=== PATIENT | female | born 1965 | race Asian ===

== ENCOUNTER 2021-08-23 06:03 | Emergency (ER) | payer MEDICAID ==
[~2021-08-23] VITALS: Ht 154.9 cm; Wt 45.5 kg
[2021-08-23 06:57] LABS: BASOPHILS % (AUTO) 0.3 % (0.0-2.0); EOSINOPHILS % (AUTO) 1.2 % (1.0-6.0); HEMATOCRIT 26.7 % (36-46); HEMOGLOBIN 8.6 g/dL (12.0-16.0); LYMPHOCYTES % (AUTO) 9.7 % (22.0-44.0); MEAN CORPUSCULAR HGB CONC 32.2 G/dL (31.0-37.0); MEAN CORPUSCULAR VOLUME 68 fL (80-100); MONOCYTES % (AUTO) 9.5 % (2.0-9.0); NEUTROPHILS # (AUTO) 8.4 K/uL (1.8-7.7); NEUTROPHILS % (AUTO) 79.3 % (40.0-70.0); PLATELET COUNT (AUTO) 164 K/uL (150-450); RED CELL DISTRIBUTION WIDTH 14.5 % (11.5-14.5)
[2021-08-23 07:11] LABS: CALCIUM, TOTAL 9.3 mg/dL (8.8-10.5); CREATININE 4.7 mg/dL (0.60-1.30); POTASSIUM 3.2 mmol/L (3.5-5.1)
[2021-08-23] MEDS ORDERED: ONDANSETRON HCL 4 MG/2 ML VIAL IVP ONE (07:15)
[2021-08-23] MEDS ORDERED: SODIUM CHLORIDE 0.9% 1,000 ML IV ONE ×2 (07:15→08:15)
[2021-08-23 07:24] LABS: ALBUMIN 3.7 g/dL (3.4-5.0); BILIRUBIN,TOTAL 0.4 mg/dL (0.1-1.0); MAGNESIUM 2.1 mg/dL (1.80-2.40); TOTAL PROTEIN, SERUM 7.4 g/dL (6.4-8.2)
[2021-08-23] MEDS ORDERED: POTASSIUM CHLORIDE 20 MEQ ER TABLET PO ONE (07:30)
[2021-08-23 09:26] LABS: APPEARANCE,URINE CLEAR (CLEAR); BILIRUBIN,URINE NEGATIVE (NEGATIVE); GLUCOSE, URINE (UA) NEGATIVE (NEGATIVE); KETONES,URINE NEGATIVE (NEGATIVE); LEUKOCYTE ESTERASE ,URINE NEGATIVE (NEGATIVE); NITRATE,URINE NEGATIVE (NEGATIVE); OCCULT BLOOD,URINE TRACE (NEGATIVE); PH,URINE 6.5 (5.0-8.0); PROTEIN,URINE SEE CONFIRM (NEGATIVE); UROBILINOGEN,URINE 0.2 mg/dL (<=1.0)
[2021-08-23 09:29] LABS: BACTERIA,URINE None Seen /HPF (None Seen); RBC,URINE 0-2 /HPF (0-2); SULFOSALICYLIC ACID,URINE Trace (Negative); WBC,URINE None Seen /HPF (0-5)
[2021-08-23 10:05] VITALS: BP 158/90
== END 2021-08-23 10:03 | disposition home or self-care (01) ==
LOC: EMS 06:06
DX: E87.6 Hypokalemia (principal); R11.2 Nausea with vomiting, unspecified; N18.9 Chronic kidney disease, unspecified; I10 Essential (primary) hypertension; F15.90 Other stimulant use, unspecified, uncomplicated; F17.210 Nicotine dependence, cigarettes, uncomplicated
CPT/HCPCS: 36415; 80053; 81001; 82550; 83690; 83735; 84702; 85025; 96361; 96374; 99283; J2405; J7030; 81002

== ENCOUNTER 2021-08-31 00:04 | Emergency (ER) | payer MEDICAID ==
[~2021-08-31] VITALS: Ht 154.9 cm; Wt 45.5 kg
[2021-08-31 00:57] LABS: BASOPHILS % (AUTO) 1.1 % (0.0-2.0); EOSINOPHILS % (AUTO) 1.5 % (1.0-6.0); HEMATOCRIT 24.9 % (36-46); HEMOGLOBIN 8.1 g/dL (12.0-16.0); LYMPHOCYTES # (AUTO) 2.2 K/uL (1.0-4.8); LYMPHOCYTES % (AUTO) 25.8 % (22.0-44.0); MEAN CORPUSCULAR HEMOGLOBIN 21.9 pg (26.0-34.0); MEAN CORPUSCULAR HGB CONC 32.4 G/dL (31.0-37.0); MEAN CORPUSCULAR VOLUME 68 fL (80-100); MONOCYTES # (AUTO) 0.6 K/uL (0.1-1.0); MONOCYTES % (AUTO) 6.7 % (2.0-9.0); NEUTROPHILS # (AUTO) 5.6 K/uL (1.8-7.7); NEUTROPHILS % (AUTO) 64.9 % (40.0-70.0); PLATELET COUNT (AUTO) 429 K/uL (150-450); RED BLOOD CELL COUNT(AUTO) 3.68 MIL/uL (4.00-5.20); RED CELL DISTRIBUTION WIDTH 14.4 % (11.5-14.5)
[2021-08-31] MEDS ORDERED: ONDANSETRON HCL 4 MG/2 ML VIAL IVP ONE (01:00)
[2021-08-31] MEDS ORDERED: PB/HYOSCY/ATR/SCOP/LIDO/MAALOX 55 ML BOTTLE PO ONE (01:00)
[2021-08-31 01:05] LABS: ANION GAP 12 mmol/L (8-16); CALCIUM, TOTAL 8.4 mg/dL (8.8-10.5); CARBON DIOXIDE 23 mmol/L (22-29); CHLORIDE 101 mmol/L (98-107); CREATININE 6.42 mg/dL (0.60-1.30); GLOMERULAR FILTR. RATE CALC 7 mL/min (>60); GLUCOSE,RANDOM 127 mg/dL (70-110); POTASSIUM 3.3 mmol/L (3.5-5.1); SODIUM SERUM 136 mmol/L (136-145)
[2021-08-31 01:11] LABS: ALANINE AMINOTRANSFERASE 160 U/L (12-78); ALBUMIN 3.2 g/dL (3.4-5.0); ALKALINE PHOSPHATASE 388 U/L (46-116); ASPARTATE AMINOTRANSFERASE 89 U/L (15-37); BILIRUBIN,TOTAL 0.3 mg/dL (0.1-1.0); LIPASE 149 U/L (73-393); TOTAL PROTEIN, SERUM 7.1 g/dL (6.4-8.2)
[2021-08-31 01:12] LABS: UREA NITROGEN, BLOOD 103 mg/dL (7-18)
[2021-08-31] MEDS ORDERED: SODIUM CHLORIDE 0.9% 500 ML IV ONE (01:15)
[2021-08-31 03:00] VITALS: BP 139/98
== END 2021-08-31 03:30 | disposition home or self-care (01) ==
LOC: EMS 00:06
DX: R10.32 Left lower quadrant pain (principal); F15.10 Other stimulant abuse, uncomplicated; I12.9 Hypertensive chronic kidney disease with stage 1 through stage 4 chronic kidney disease, or unspecified chronic kidney disease; N18.9 Chronic kidney disease, unspecified
CPT/HCPCS: 36415; 80053; 83690; 85025; 96361; 96374; 99283; G0480; J2405; J7030

== ENCOUNTER 2021-11-05 05:30 | Inpatient (IN) | payer MEDICAID ==
[~2021-11-05] VITALS: Ht 149.9 cm; Wt 44.4 kg
[2021-11-05] MEDS ORDERED: LORazepam 2 MG/ML VIAL IVP ONE (05:45)
[2021-11-05] MEDS ORDERED: NITROGLYCERIN 50 MG/D5% WATER 250 ML IV PRN (05:45)
[2021-11-05 05:47] LABS: BASOPHILS % (AUTO) 0.7 % (0.0-2.0); EOSINOPHILS % (AUTO) 1.7 % (1.0-6.0); HEMATOCRIT 26.1 % (36-46); HEMOGLOBIN 8.2 g/dL (12.0-16.0); LYMPHOCYTES # (AUTO) 3.6 K/uL (1.0-4.8); LYMPHOCYTES % (AUTO) 34.9 % (22.0-44.0); MEAN CORPUSCULAR HEMOGLOBIN 22.3 pg (26.0-34.0); MEAN CORPUSCULAR HGB CONC 31.2 G/dL (31.0-37.0); MEAN CORPUSCULAR VOLUME 72 fL (80-100); MONOCYTES # (AUTO) 0.6 K/uL (0.1-1.0); MONOCYTES % (AUTO) 5.6 % (2.0-9.0); NEUTROPHILS % (AUTO) 57.1 % (40.0-70.0); PLATELET COUNT (AUTO) 390 K/uL (150-450); RED BLOOD CELL COUNT(AUTO) 3.65 MIL/uL (4.00-5.20); RED CELL DISTRIBUTION WIDTH 19.8 % (11.5-14.5)
[2021-11-05 05:53] LABS: ABG BASE EXCESS -9.9 mmol/L (-2.0-3.0); ABG CARBOXYHEMOGLOBIN 1.5 % (0.0-1.5); ABG HCO3 17.1 mmol/L (22.0-26.0); ABG METHEMOGLOBIN 0.3 % (0.0-1.5); ABG OXYGEN CONTENT 11.4 mL/dL (15.0-23.0); ABG OXYGEN SATURATION 98.1 % (95.0-98.0); ABG OXYHEMOGLOBIN 96.3 % (94.0-100.0); ABG PCO2 33 mmHg (35-45); ABG PH 7.316 (7.35-7.450); ABG TOTAL HEMOGLOBIN 8.2 G/dL (12.0-18.0); PO2, ARTERIAL BG 128.3 mmHg (84.0-92.0); SITE, BLOOD GAS LFT RADIAL; SOURCE, BLOOD GAS ARTERIAL; TEMPERATURE, FAHRENHEIT, BG 98.6 FAHREN (96.0-98.6)
[2021-11-05 05:54] LABS: INSPIRATORY TIME, BG 0.8 SEC; O2 DEVICE,BLOOD GAS BIPAP (ROOM AIR); SPONTANEOUS VT, BG 470 ml
[2021-11-05 06:04] LABS: CALCIUM, TOTAL 8.1 mg/dL (8.8-10.5); CREATININE 6.39 mg/dL (0.60-1.30); POTASSIUM 3.3 mmol/L (3.5-5.1); PROTHROMBIN TIME 10.3 SEC (9.4-11.6)
[2021-11-05 06:10] LABS: ALBUMIN 3.2 g/dL (3.4-5.0); BILIRUBIN,TOTAL 0.4 mg/dL (0.1-1.0); TOTAL PROTEIN, SERUM 7.2 g/dL (6.4-8.2)
[2021-11-05] MEDS ORDERED: 0.9% SODIUM CHLORIDE 10 ML SYRINGE IVP PRN (06:30)
[2021-11-05] MEDS ORDERED: ONDANSETRON HCL 4 MG/2 ML VIAL IVP PRN (06:30)
[2021-11-05] MEDS ORDERED: ACETAMINOPHEN 325 MG TABLET PO PRN (06:30)
[2021-11-05 07:00] VITALS: BP 191/123
[2021-11-05 07:13] LABS: APPEARANCE,URINE CLOUDY (CLEAR); BILIRUBIN,URINE NEGATIVE (NEGATIVE); GLUCOSE, URINE (UA) 250 mg/dL (NEGATIVE); KETONES,URINE NEGATIVE (NEGATIVE); LEUKOCYTE ESTERASE ,URINE NEGATIVE (NEGATIVE); NITRATE,URINE NEGATIVE (NEGATIVE); OCCULT BLOOD,URINE SMALL (NEGATIVE); PH,URINE 7.5 (5.0-8.0); PROTEIN,URINE SEE CONFIRM (NEGATIVE); UROBILINOGEN,URINE 0.2 mg/dL (<=1.0)
[2021-11-05 07:19] LABS: AMPHET/METH SCREEN,URINE POSITIVE (NEGATIVE); BARBITURATE SCREEN, URINE NEGATIVE (NEGATIVE); BENZODIAZEPINES SCREEN,URINE NEGATIVE (NEGATIVE); CANNABINOID SCREEN,URINE NEGATIVE (NEGATIVE); COCAINE SCREEN,URINE NEGATIVE (NEGATIVE); METHADONE SCREEN, URINE NEGATIVE (NEGATIVE); OPIATE SCREEN,URINE NEGATIVE (NEGATIVE); PHENCYCLIDINE SCREEN,URINE NEGATIVE (NEGATIVE)
[2021-11-05 07:28] LABS: BACTERIA,URINE Many /HPF (None Seen); SQUAMOUS EPITHELIAL CELL,UR Moderate /LPF (None Seen); SULFOSALICYLIC ACID,URINE 3+ (Negative); WBC,URINE 0-2 /HPF (0-5)
[2021-11-05 08:00] VITALS: BP 186/119
[2021-11-05 09:00] VITALS: BP 164/113
[2021-11-05 10:00] VITALS: BP 160/78
[2021-11-05 15:13] LABS: COVID AG,FIA SOURCE NASAL SWAB
[2021-11-05 17:17] VITALS: BP 128/73
[2021-11-05] MEDS ORDERED: FUROSEMIDE 40 MG/4 ML VIAL IVP ONE (19:00)
[2021-11-05] MEDS ORDERED: MORPHINE SULFATE 2 MG/ML SYRINGE IVP PRN (19:00)
[2021-11-05] MEDS ORDERED: HYDROCODONE/ACETAMINOPHEN 5-325 MG TABLET PO PRN (19:00)
[2021-11-05] MEDS ORDERED: IPRATROPIUM BROMIDE 0.5 MG/2.5 ML NEB SOLUTION NEB PRN (19:00)
[2021-11-05] MEDS ORDERED: ALBUTEROL SULFATE 2.5 MG/0.5 ML NEB SOLUTION NEB PRN (19:00)
[2021-11-05] MEDS ORDERED: INFLUENZA VIRUS VACCINE QVS 2021-22 (6MO+)/PF 60 MCG/0.5 ML SYRINGE IM. ONE (19:00)
[2021-11-05] MEDS ORDERED: PNEUMOCOCCAL VACCINE POLYVALENT 0.5 ML VIAL [PPSV23] IM. ONE (19:00)
[2021-11-05] MEDS ORDERED: MAGNESIUM HYDROXIDE SUSPENSION 30 ML UDCUP PO PRN (19:00)
[2021-11-05] MEDS ORDERED: BISACODYL 10 MG RECTAL RECTAL SUPPOSITORY PR PRN (19:00)
[2021-11-05 19:47] VITALS: BP 169/110
[2021-11-05] MEDS ORDERED: SODIUM CHLORIDE 0.9% 250 ML IV ONE (19:53)
[2021-11-05] MEDS: HydrALAZINE HCL 50 MG TABLET PO SCH (21:46)
[2021-11-05] MEDS: ZOLPIDEM TARTRATE 5 MG TABLET PO PRN (21:46)
[2021-11-05] MEDS: CefTRIAXone 1 GM/DEXTROSE 50 ML IV SCH (21:55)
[2021-11-05] MEDS: AZITHROMYCIN 500 MG/NS 250 ML IV SCH (22:45)
[2021-11-05] MEDS: HEPARIN SODIUM,PORCINE 5,000 UNITS/ML VIAL SQ SCH (23:08)
[2021-11-06] VITALS (19 sets, daily range): BP systolic 147–208; BP diastolic 85–114
[2021-11-06] MEDS: HEPARIN SODIUM,PORCINE 5,000 UNITS/ML VIAL SQ SCH ×2 (08:00→16:00)
[2021-11-06] MEDS: VITAMIN B COMP/VIT C/FOLIC ACID CAPSULE PO SCH (09:00)
[2021-11-06] MEDS: EPOETIN ALFA 10,000 UNITS/ML 2 ML VIAL SQ SCH (09:00)
[2021-11-06] MEDS: PANTOPRAZOLE SODIUM 40 MG/VIAL IVP SCH (09:44)
[2021-11-06] MEDS: NIFEdipine 30 MG ER TABLET PO SCH (09:44)
[2021-11-06] MEDS: HydrALAZINE HCL 50 MG TABLET PO SCH ×2 (09:44→22:35)
[2021-11-06 10:17] LABS: CALCIUM, TOTAL 8.2 mg/dL (8.8-10.5); CREATININE 7.56 mg/dL (0.60-1.30); PHOSPHORUS 7.8 mg/dL (2.5-4.9); POTASSIUM 4.4 mmol/L (3.5-5.1)
[2021-11-06] MEDS ORDERED: NALOXONE HCL 0.4 MG/ML VIAL ONE (13:40)
[2021-11-06] MEDS ORDERED: FentaNYL CITRATE PF 100 MCG/2 ML VIAL ONE (13:40)
[2021-11-06] MEDS ORDERED: MIDAZOLAM HCL 2 MG/2 ML VIAL ONE ×2 (13:40→17:04)
[2021-11-06] MEDS ORDERED: FLUMAZENIL 0.1 MG/ML 5 ML VIAL IVP ONE (13:40)
[2021-11-06 14:03] LABS: PROTHROMBIN TIME 10.4 SEC (9.4-11.6)
[2021-11-06] MEDS ORDERED: HEPARIN SODIUM,PORCINE 1,000 UNITS/ML 10 ML VIAL ONE (15:41)
[2021-11-06] MEDS ORDERED: LIDOCAINE/PF 1% 30 ML VIAL ONE (15:41)
[2021-11-06] MEDS ORDERED: HEPARIN SODIUM 1000 UNITS/NS 500 ML ONE (15:42)
[2021-11-06] MEDS ORDERED: SODIUM CHLORIDE 0.9% 2,000 ML ONE (17:51)
[2021-11-06] MEDS ORDERED: FentaNYL CITRATE PF 100 MCG/2 ML VIAL IVP ONE ×2 (18:15)
[2021-11-06] MEDS ORDERED: MIDAZOLAM HCL 2 MG/2 ML VIAL IVP ONE ×3 (18:15)
[2021-11-06] MEDS: CefTRIAXone 1 GM/DEXTROSE 50 ML IV SCH (22:35)
[2021-11-06] MEDS ORDERED: HEPARIN SODIUM,PORCINE 1,000 UNITS/ML VIAL IVCATH ONE ×2 (23:45)
[2021-11-07] MEDS: AZITHROMYCIN 500 MG/NS 250 ML IV SCH ×2 (00:39→20:33)
[2021-11-07 00:53] VITALS: BP 176/90
[2021-11-07 07:21] VITALS: BP 174/93
[2021-11-07] MEDS: NIFEdipine 30 MG ER TABLET PO SCH (07:43)
[2021-11-07] MEDS: HydrALAZINE HCL 50 MG TABLET PO SCH ×2 (07:43→19:56)
[2021-11-07] MEDS: FUROSEMIDE 40 MG/4 ML VIAL IVP SCH (07:44)
[2021-11-07] MEDS: HEPARIN SODIUM,PORCINE 5,000 UNITS/ML VIAL SQ SCH ×5 (07:44→23:35)
[2021-11-07] MEDS: PANTOPRAZOLE SODIUM 40 MG/VIAL IVP SCH (07:44)
[2021-11-07] MEDS: VITAMIN B COMP/VIT C/FOLIC ACID CAPSULE PO SCH (10:37)
[2021-11-07 11:46] VITALS: BP 175/82
[2021-11-07] MEDS: ACETAMINOPHEN 325 MG TABLET PO PRN (11:54)
[2021-11-07] MEDS: HydrALAZINE HCL 20 MG/ML VIAL IVP PRN (11:55)
[2021-11-07 15:39] VITALS: BP 142/75
[2021-11-07] MEDS ORDERED: HEPARIN SODIUM,PORCINE 1,000 UNITS/ML VIAL IVP ONE (16:45)
[2021-11-07] MEDS: CefTRIAXone 1 GM/DEXTROSE 50 ML IV SCH (19:56)
[2021-11-07 20:08] VITALS: BP 137/80
[2021-11-07] MEDS: ZOLPIDEM TARTRATE 5 MG TABLET PO PRN (23:34)
[2021-11-07 23:36] VITALS: BP 133/82
[2021-11-08] VITALS (13 sets, daily range): BP systolic 135–185; BP diastolic 64–95
[2021-11-08] MEDS: VITAMIN B COMP/VIT C/FOLIC ACID CAPSULE PO SCH (08:33)
[2021-11-08] MEDS: NIFEdipine 30 MG ER TABLET PO SCH (08:33)
[2021-11-08] MEDS: PANTOPRAZOLE SODIUM 40 MG/VIAL IVP SCH (08:34)
[2021-11-08] MEDS: HEPARIN SODIUM,PORCINE 5,000 UNITS/ML VIAL SQ SCH ×2 (08:34→16:59)
[2021-11-08] MEDS: EPOETIN ALFA 10,000 UNITS/ML 2 ML VIAL SQ SCH (08:40)
[2021-11-08] MEDS: HydrALAZINE HCL 50 MG TABLET PO SCH ×2 (08:45→20:21)
[2021-11-08] MEDS: CefTRIAXone 1 GM/DEXTROSE 50 ML IV SCH (20:21)
[2021-11-08] MEDS: ZOLPIDEM TARTRATE 5 MG TABLET PO PRN ×2 (20:32→20:43)
[2021-11-08] MEDS: AZITHROMYCIN 500 MG/NS 250 ML IV SCH (20:43)
[2021-11-09 04:20] VITALS: BP 180/100
[2021-11-09] MEDS: HydrALAZINE HCL 20 MG/ML VIAL IVP PRN ×2 (04:27→12:21)
[2021-11-09 07:54] VITALS: BP 148/91
[2021-11-09] MEDS: NIFEdipine 30 MG ER TABLET PO SCH (10:44)
[2021-11-09] MEDS: FUROSEMIDE 40 MG/4 ML VIAL IVP SCH (10:44)
[2021-11-09] MEDS: HydrALAZINE HCL 50 MG TABLET PO SCH ×2 (10:44→20:09)
[2021-11-09] MEDS: VITAMIN B COMP/VIT C/FOLIC ACID CAPSULE PO SCH (10:44)
[2021-11-09] MEDS: PANTOPRAZOLE SODIUM 40 MG/VIAL IVP SCH (10:44)
[2021-11-09] MEDS: HEPARIN SODIUM,PORCINE 5,000 UNITS/ML VIAL SQ SCH ×4 (10:57→23:12)
[2021-11-09 11:50] VITALS: BP 193/97
[2021-11-09 12:12] VITALS: BP 176/91
[2021-11-09 15:50] VITALS: BP 159/88
[2021-11-09] MEDS: CefTRIAXone 1 GM/DEXTROSE 50 ML IV SCH ×2 (19:31→22:19)
[2021-11-09] MEDS: ZOLPIDEM TARTRATE 5 MG TABLET PO PRN (20:08)
[2021-11-09 21:15] VITALS: BP 150/79
[2021-11-09] MEDS: AZITHROMYCIN 500 MG/NS 250 ML IV SCH (23:01)
[2021-11-10 01:45] VITALS: BP 150/84
[2021-11-10 05:26] VITALS: BP 176/93
[2021-11-10] MEDS: HydrALAZINE HCL 20 MG/ML VIAL IVP PRN ×4 (06:11→10:20)
[2021-11-10] MEDS: PANTOPRAZOLE SODIUM 40 MG/VIAL IVP SCH (08:10)
[2021-11-10] MEDS: VITAMIN B COMP/VIT C/FOLIC ACID CAPSULE PO SCH (08:10)
[2021-11-10] MEDS: HEPARIN SODIUM,PORCINE 5,000 UNITS/ML VIAL SQ SCH ×2 (08:11→16:00)
[2021-11-10] MEDS: NIFEdipine 60 MG ER TABLET PO SCH (08:11)
[2021-11-10 09:44] VITALS: BP 195/96
[2021-11-10] MEDS: HydrALAZINE HCL 50 MG TABLET PO SCH ×2 (10:25→20:50)
[2021-11-10 14:08] VITALS: BP 182/70
[2021-11-10] MEDS ORDERED: RINGERS SOLUTION,LACTATED 1,000 ML IV ONE (14:31)
[2021-11-10] MEDS ORDERED: LIDOCAINE/PF 1% 30 ML VIAL ONE (15:07)
[2021-11-10] MEDS ORDERED: HEPARIN SODIUM,PORCINE 5,000 UNITS/ML VIAL ONE (15:07)
[2021-11-10] MEDS ORDERED: SODIUM CHLORIDE 0.9% 0 ML IV ONE (15:08)
[2021-11-10] MEDS ORDERED: SODIUM CHLORIDE 0.9% 50 ML ONE (15:09)
[2021-11-10] MEDS ORDERED: SODIUM CHLORIDE 0.9% 100 ML ONE (15:09)
[2021-11-10] MEDS ORDERED: SODIUM CHLORIDE 0.9% 500 ML IV ONE (15:15)
[2021-11-10] MEDS ORDERED: VANCOMYCIN HCL 500 MG/VIAL ONE (15:18)
[2021-11-10] MEDS ORDERED: HYDROCODONE/ACETAMINOPHEN 5-325 MG TABLET PO PRN ×2 (16:15)
[2021-11-10] MEDS ORDERED: HEPARIN SODIUM,PORCINE 1,000 UNITS/ML VIAL IVP ONE (17:55)
[2021-11-10] MEDS: ONDANSETRON HCL 4 MG/2 ML VIAL IVP PRN (19:35)
[2021-11-10] MEDS: CefTRIAXone 1 GM/DEXTROSE 50 ML IV SCH (19:36)
[2021-11-10 20:25] VITALS: BP 139/72
[2021-11-10] MEDS: AZITHROMYCIN 500 MG/NS 250 ML IV SCH (20:50)
[2021-11-11] VITALS (23 sets, daily range): BP systolic 125–193; BP diastolic 71–101
[2021-11-11] MEDS: HydrALAZINE HCL 20 MG/ML VIAL IVP PRN ×4 (03:40→21:26)
[2021-11-11] MEDS: ACETAMINOPHEN 325 MG TABLET PO PRN (05:41)
[2021-11-11] MEDS ORDERED: LIDOCAINE/PF 2% 5 ML SYRINGE IVP ONE (06:32)
[2021-11-11] MEDS ORDERED: FentaNYL CITRATE PF 100 MCG/2 ML VIAL IVP ONE (06:32)
[2021-11-11] MEDS ORDERED: PROPOFOL 1% 20 ML VIAL IVP ONE (06:32)
[2021-11-11] MEDS ORDERED: KETAMINE HCL 50 MG/ML 10 ML VIAL IVP ONE (06:32)
[2021-11-11] MEDS ORDERED: ONDANSETRON HCL 4 MG/2 ML VIAL IVP ONE (06:32)
[2021-11-11] MEDS ORDERED: MIDAZOLAM HCL 2 MG/2 ML VIAL IVP ONE (06:32)
[2021-11-11 07:13] LABS: BASOPHILS % (AUTO) 0.9 % (0.0-2.0); EOSINOPHILS % (AUTO) 1.9 % (1.0-6.0); LYMPHOCYTES # (AUTO) 0.9 K/uL (1.0-4.8); LYMPHOCYTES % (AUTO) 11.7 % (22.0-44.0); MEAN CORPUSCULAR HEMOGLOBIN 22.2 pg (26.0-34.0); MEAN CORPUSCULAR HGB CONC 32.3 G/dL (31.0-37.0); MEAN CORPUSCULAR VOLUME 69 fL (80-100); MONOCYTES # (AUTO) 0.6 K/uL (0.1-1.0); MONOCYTES % (AUTO) 8.6 % (2.0-9.0); NEUTROPHILS # (AUTO) 5.7 K/uL (1.8-7.7); NEUTROPHILS % (AUTO) 76.9 % (40.0-70.0); PLATELET COUNT (AUTO) 292 K/uL (150-450); RED BLOOD CELL COUNT(AUTO) 2.98 MIL/uL (4.00-5.20); RED CELL DISTRIBUTION WIDTH 18.4 % (11.5-14.5)
[2021-11-11 07:19] LABS: CREATININE 6.86 mg/dL (0.60-1.30); POTASSIUM 4.1 mmol/L (3.5-5.1)
[2021-11-11 07:23] LABS: HEMATOCRIT 20.5 % (36-46); HEMOGLOBIN 6.6 g/dL (12.0-16.0)
[2021-11-11] MEDS: HEPARIN SODIUM,PORCINE 5,000 UNITS/ML VIAL SQ SCH ×4 (08:00→23:58)
[2021-11-11] MEDS: PANTOPRAZOLE SODIUM 40 MG/VIAL IVP SCH (08:34)
[2021-11-11] MEDS: ONDANSETRON HCL 4 MG/2 ML VIAL IVP PRN (08:35)
[2021-11-11] MEDS: FUROSEMIDE 40 MG/4 ML VIAL IVP SCH (08:36)
[2021-11-11] MEDS: VITAMIN B COMP/VIT C/FOLIC ACID CAPSULE PO SCH (08:36)
[2021-11-11] MEDS: NIFEdipine 60 MG ER TABLET PO SCH (08:36)
[2021-11-11] MEDS: EPOETIN ALFA 10,000 UNITS/ML 2 ML VIAL SQ SCH (08:40)
[2021-11-11] MEDS: HydrALAZINE HCL 50 MG TABLET PO SCH ×2 (08:40→21:00)
[2021-11-11] MEDS ORDERED: SODIUM CHLORIDE 0.9% 2,000 ML ONE (10:07)
[2021-11-11] MEDS ORDERED: SODIUM CHLORIDE 0.9% 500 ML IV ONE (10:39)
[2021-11-11] MEDS: LABETALOL HCL 100 MG TABLET PO SCH ×2 (14:26→21:25)
[2021-11-11] MEDS: CefTRIAXone 1 GM/DEXTROSE 50 ML IV SCH (20:08)
[2021-11-11] MEDS: AZITHROMYCIN 500 MG/NS 250 ML IV SCH (21:25)
[2021-11-11] MEDS: ZOLPIDEM TARTRATE 5 MG TABLET PO PRN (21:37)
[2021-11-12 05:00] VITALS: BP 147/88
[2021-11-12 07:42] LABS: HEMATOCRIT 24.2 % (36-46)
[2021-11-12] MEDS: HEPARIN SODIUM,PORCINE 5,000 UNITS/ML VIAL SQ SCH (08:00)
[2021-11-12] MEDS: PANTOPRAZOLE SODIUM 40 MG/VIAL IVP SCH (08:10)
[2021-11-12] MEDS: VITAMIN B COMP/VIT C/FOLIC ACID CAPSULE PO SCH (08:11)
[2021-11-12] MEDS: LABETALOL HCL 100 MG TABLET PO SCH (08:13)
[2021-11-12] MEDS: NIFEdipine 60 MG ER TABLET PO SCH (08:17)
[2021-11-12] MEDS: HydrALAZINE HCL 50 MG TABLET PO SCH (08:17)
[2021-11-12 09:03] VITALS: BP 167/81
[2021-11-12 12:18] VITALS: BP 135/69
[2021-11-12] MEDS ORDERED: LABE100T51 PO (15:38)
[2021-11-12] MEDS ORDERED: HYDR-4174 PO (15:38)
[2021-11-12] MEDS ORDERED: NIFE-39 PO (15:38)
[2021-11-12] MEDS ORDERED: FURO-151 PO (15:38)
[2021-11-12] MEDS ORDERED: HEPARIN SODIUM,PORCINE 1,000 UNITS/ML VIAL ONE (18:39)
== END 2021-11-12 15:45 | disposition home or self-care (01) | DRG 180 ==
LOC: EMS 05:31 → 5S 16:44
PROVIDERS: ADMIT Hospitalist; ATTEND Hospitalist
PROC: 5A09357 Assistance with Respiratory Ventilation, Less than 24 Consecutive Hours, Continuous Positive Airway Pressure (ICD-10-PCS; 2021-11-05)
PROC: 30233N1 Transfusion of Nonautologous Red Blood Cells into Peripheral Vein, Percutaneous Approach (ICD-10-PCS; principal; 2021-11-11)
PROC: 03180ZD Bypass Left Brachial Artery to Upper Arm Vein, Open Approach (ICD-10-PCS; 2021-11-11)
DX: I13.2 Hypertensive heart and chronic kidney disease with heart failure and with stage 5 chronic kidney disease, or end stage renal disease (principal); J96.01 Acute respiratory failure with hypoxia; E44.1 Mild protein-calorie malnutrition; T82.41XA Breakdown (mechanical) of vascular dialysis catheter, initial encounter; N18.6 End stage renal disease; D63.1 Anemia in chronic kidney disease; I16.1 Hypertensive emergency; F17.210 Nicotine dependence, cigarettes, uncomplicated; F15.10 Other stimulant abuse, uncomplicated; I50.9 Heart failure, unspecified; E87.6 Hypokalemia; Y83.8 Other surgical procedures as the cause of abnormal reaction of the patient, or of later complication, without mention of misadventure at the time of the procedure; E78.5 Hyperlipidemia, unspecified; F41.9 Anxiety disorder, unspecified; Z99.2 Dependence on renal dialysis; Z91.19 Patient's noncompliance with other medical treatment and regimen; Z91.14 Patient's other noncompliance with medication regimen; Y92.89 Other specified places as the place of occurrence of the external cause; I50.32 Chronic diastolic (congestive) heart failure; Z68.1 Body mass index [BMI] 19.9 or less, adult
CPT/HCPCS: 36245; 36561; 36600; 71045; 76000; 76937; 80048; 80053; 81001; 81002; 82550; 82805; 83880; 83970; 84100; 84484; 85014; 85018; 85025; 85610; 85730; 86850; 86900; 86901; 86923; 87081; 87086; 87340; 90935; 93005; 93970; 94660; 97161; 99285; C9113; J0360; J0456; J0690; J0696; J0885; J1644; J1940; J2250; J2310; J2405; J2704; J3010; J3370; J3490; J7030; J7040; J7050; J7120; P9016; 36415-L1; 36415-TC; C1716; Z7610

== ENCOUNTER 2021-12-18 23:55 | Emergency (ER) | payer MEDICAID ==
[~2021-12-18] VITALS: Ht 154.9 cm; Wt 55.7 kg
[~2021-12-18 23:55] MED LIST: FURO-151 PO; HYDR-4174 PO; LABE100T51 PO; NIFE-39 PO
[2021-12-19 01:36] LABS: ALBUMIN 3.2 g/dL (3.4-5.0); BASOPHILS % (AUTO) 0.8 % (0.0-2.0); BILIRUBIN,TOTAL 0.4 mg/dL (0.1-1.0); CALCIUM, TOTAL 8.6 mg/dL (8.8-10.5); CREATININE 5.84 mg/dL (0.60-1.30); HEMATOCRIT 23.7 % (36-46); HEMOGLOBIN 7.6 g/dL (12.0-16.0); LYMPHOCYTES # (AUTO) 1.2 K/uL (1.0-4.8); LYMPHOCYTES % (AUTO) 19.7 % (22.0-44.0); MEAN CORPUSCULAR HEMOGLOBIN 24.9 pg (26.0-34.0); MEAN CORPUSCULAR HGB CONC 32.2 G/dL (31.0-37.0); MEAN CORPUSCULAR VOLUME 77 fL (80-100); MONOCYTES # (AUTO) 0.7 K/uL (0.1-1.0); MONOCYTES % (AUTO) 11.3 % (2.0-9.0); NEUTROPHILS % (AUTO) 65.2 % (40.0-70.0); PLATELET COUNT (AUTO) 168 K/uL (150-450); POTASSIUM 4.2 mmol/L (3.5-5.1); RED BLOOD CELL COUNT(AUTO) 3.06 MIL/uL (4.00-5.20); RED CELL DISTRIBUTION WIDTH 22.6 % (11.5-14.5); TOTAL PROTEIN, SERUM 6.7 g/dL (6.4-8.2)
[2021-12-19 01:58] LABS: APPEARANCE,URINE CLEAR (CLEAR); BILIRUBIN,URINE NEGATIVE (NEGATIVE); GLUCOSE, URINE (UA) 70-100 mg/dL (NEGATIVE); KETONES,URINE NEGATIVE (NEGATIVE); LEUKOCYTE ESTERASE ,URINE NEGATIVE (NEGATIVE); NITRATE,URINE NEGATIVE (NEGATIVE); OCCULT BLOOD,URINE NEGATIVE (NEGATIVE); PH,URINE 8.5 (5.0-8.0); PROTEIN,URINE 100-200,SEE CONFIRM mg/dL (NEGATIVE); SPECIFIC GRAVITIY, URINE 1.009 (1.003-1.030); UROBILINOGEN,URINE <=1.0 mg/dL (<=1.0)
[2021-12-19 02:14] LABS: RBC,URINE None Seen /HPF (0-2); SULFOSALICYLIC ACID,URINE 1+ (Negative); WBC,URINE None Seen /HPF (0-5)
[2021-12-19 02:15] LABS: BACTERIA,URINE None Seen /HPF (None Seen); SQUAMOUS EPITHELIAL CELL,UR Rare /LPF (None Seen)
[2021-12-19] MEDS ORDERED: MORPHINE SULFATE 4 MG/ML SYRINGE IVP ONE (02:45)
[2021-12-19 06:17] VITALS: BP 140/77
== END 2021-12-19 06:52 | disposition home or self-care (01) ==
LOC: EMS 23:56
DX: R10.11 Right upper quadrant pain (principal); I12.0 Hypertensive chronic kidney disease with stage 5 chronic kidney disease or end stage renal disease; N18.6 End stage renal disease; Z99.2 Dependence on renal dialysis; F15.90 Other stimulant use, unspecified, uncomplicated; F17.210 Nicotine dependence, cigarettes, uncomplicated; Z79.899 Other long term (current) drug therapy
CPT/HCPCS: 36415; 74176; 80053; 81001; 83690; 85025; 96374; 99285; J2270; 81002

== ENCOUNTER 2022-02-23 15:52 | Emergency (ER) | payer MEDICAID ==
[~2022-02-23] VITALS: Ht 154.9 cm; Wt 43.2 kg
[~2022-02-23 15:52] MED LIST changes: -HYDR-4174 PO; +HYDR50TA36 PO; -NIFE-39 PO; +NIFE30TA5 PO; +SEVE800T17 PO
[2022-02-23 16:30] VITALS: BP 125/61
== END 2022-02-23 21:00 | disposition left against medical advice (07) ==
LOC: EMS 15:52
DX: Z53.21 Procedure and treatment not carried out due to patient leaving prior to being seen by health care provider (principal)
CPT/HCPCS: 93005

== ENCOUNTER 2022-12-07 17:30 | Emergency (ER) | payer MEDICAID ==
[~2022-12-07] VITALS: Ht 154.9 cm; Wt 38.6 kg
[~2022-12-07 17:30] MED LIST changes: +NIFE-141 PO; -NIFE30TA5 PO
[2022-12-07 17:45] VITALS: BP 117/66
== END 2022-12-07 18:57 | disposition left against medical advice (07) ==
LOC: EMS 17:40
DX: Z53.21 Procedure and treatment not carried out due to patient leaving prior to being seen by health care provider (principal)
CPT/HCPCS: 99281; Z7502

== ENCOUNTER 2023-07-20 07:59 | Inpatient (IN) | payer MEDICAID ==
[2023-07-20] VITALS (12 sets, daily range): BP systolic 148–200; BP diastolic 76–99; PULSE 65–85; RESP 16–33; TEMP 97.9–99.4; O2SAT 94–98
[~2023-07-20] VITALS: Ht 154.9 cm; Wt 40.6 kg
[2023-07-20] MEDS ORDERED: FUROSEMIDE 40 MG/4 ML VIAL IVP ONE (08:30)
[2023-07-20] MEDS ORDERED: LORazepam 2 MG/ML VIAL IVP ONE (09:00)
[2023-07-20 09:16] LABS: COVID AG,FIA SOURCE NASAL SWAB
[2023-07-20 09:19] LABS: BASOPHILS % (AUTO) 0.7 % (0.0-2.0); EOSINOPHILS % (AUTO) 1.3 % (1.0-6.0); HEMATOCRIT 30.6 % (36-46); HEMOGLOBIN 9.6 g/dL (12.0-16.0); LYMPHOCYTES % (AUTO) 11.3 % (22.0-44.0); MEAN CORPUSCULAR HEMOGLOBIN 24.4 pg (26.0-34.0); MEAN CORPUSCULAR HGB CONC 31.3 G/dL (31.0-37.0); MEAN CORPUSCULAR VOLUME 78 fL (80-100); MONOCYTES # (AUTO) 0.4 K/uL (0.1-1.0); MONOCYTES % (AUTO) 4.9 % (2.0-9.0); NEUTROPHILS % (AUTO) 81.8 % (40.0-70.0); PLATELET COUNT (AUTO) 185 K/uL (150-450); RED BLOOD CELL COUNT(AUTO) 3.92 MIL/uL (4.00-5.20); WHITE BLOOD COUNT (AUTO) 8.6 K/uL (4.5-11.0)
[2023-07-20 09:28] LABS: ANION GAP 17 mmol/L (8-16); CALCIUM, TOTAL 9.1 mg/dL (8.8-10.5); CARBON DIOXIDE 15 mmol/L (22-29); CHLORIDE 105 mmol/L (98-107); CREATININE 8.61 mg/dL (0.60-1.30); GLOMERULAR FILTR. RATE CALC 5 mL/min (>60); GLUCOSE,RANDOM 109 mg/dL (70-110); POTASSIUM 5.1 mmol/L (3.5-5.1); SODIUM SERUM 137 mmol/L (136-145)
[2023-07-20 09:30] LABS: ALCOHOL, BLOOD (SERUM) < 3 mg/dL (0-10)
[2023-07-20] MEDS ORDERED: NITROGLYCERIN 2% (1 GM=INCH) OINTMENT PACKET TP ONE (09:30)
[2023-07-20] MEDS ORDERED: BUMETANIDE 0.25 MG/ML 4 ML VIAL IVP ONE (09:30)
[2023-07-20] MEDS ORDERED: LABETALOL HCL 5 MG/ML 20 ML VIAL IVP ONE ×3 (09:30→13:00)
[2023-07-20 09:31] LABS: UREA NITROGEN, BLOOD 108 mg/dL (7-18)
[2023-07-20 09:32] LABS: B-TYPE NATRIURETIC PEPTIDE 2120 pg/mL (0-100)
[2023-07-20 09:34] LABS: TROPONIN I-HIGH SENSITIVITY 24 ng/L (<51)
[2023-07-20 09:35] LABS: APPEARANCE,URINE CLEAR (CLEAR); BILIRUBIN,URINE NEGATIVE (NEGATIVE); COLOR,URINE COLORLESS (YELLOW); GLUCOSE, URINE (UA) 150-200 mg/dL (NEGATIVE); KETONES,URINE NEGATIVE (NEGATIVE); LEUKOCYTE ESTERASE ,URINE SMALL (NEGATIVE); NITRATE,URINE NEGATIVE (NEGATIVE); OCCULT BLOOD,URINE TRACE (NEGATIVE); PH,URINE 6.5 (5.0-8.0); PH,URINE DRUG SCREEN 6.5 (5.0-8.0); PROTEIN,URINE 100-200,SEE CONFIRM mg/dL (NEGATIVE); SARS-COV2 (COVID) ANTIGEN,FIA Negative (Negative); SPECIFIC GRAVITIY, URINE 1.011 (1.003-1.030); UROBILINOGEN,URINE <=1.0 mg/dL (<=1.0)
[2023-07-20 09:35] LABS: ALANINE AMINOTRANSFERASE 41 U/L (12-78); ALBUMIN 3.6 g/dL (3.4-5.0); ALKALINE PHOSPHATASE 87 U/L (46-116); ASPARTATE AMINOTRANSFERASE 30 U/L (15-37); BILIRUBIN,TOTAL 0.4 mg/dL (0.1-1.0); LACTIC ACID 0.9 mmol/L (0.4-2.0); LIPASE 160 U/L (16-77); TOTAL PROTEIN, SERUM 7.2 g/dL (6.4-8.2)
[2023-07-20 09:43] LABS: AMPHET/METH SCREEN,URINE POSITIVE (NEGATIVE); BARBITURATE SCREEN, URINE NEGATIVE (NEGATIVE); BENZODIAZEPINES SCREEN,URINE NEGATIVE (NEGATIVE); CANNABINOID SCREEN,URINE NEGATIVE (NEGATIVE); COCAINE SCREEN,URINE NEGATIVE (NEGATIVE); METHADONE SCREEN, URINE NEGATIVE (NEGATIVE); OPIATE SCREEN,URINE NEGATIVE (NEGATIVE); PHENCYCLIDINE SCREEN,URINE NEGATIVE (NEGATIVE)
[2023-07-20 09:45] LABS: ALCOHOL, URINE DRUG SCREEN NEGATIVE (NEGATIVE)
[2023-07-20 09:59] LABS: SULFOSALICYLIC ACID,URINE 2+ (Negative)
[2023-07-20 10:00] LABS: RBC,URINE 0-2 /HPF (0-2); SQUAMOUS EPITHELIAL CELL,UR Moderate /LPF (None Seen)
[2023-07-20 10:01] LABS: BACTERIA,URINE Few /HPF (None Seen)
[2023-07-20 10:12] LABS: RBC MORPHOLOGY COMMENT ABNORMAL RBC MORPH
[2023-07-20] MEDS ORDERED: NIFE90TA91 PO (12:52)
[2023-07-20] MEDS ORDERED: PNEUMOCOCCAL VACCINE POLYVALENT 0.5 ML SYRINGE [PPSV23] IM. ONE (15:30)
[2023-07-20] MEDS: SEVELAMER CARBONATE 800 MG TABLET PO SCH (17:30)
[2023-07-20] MEDS: AmLODIPine BESYLATE 10 MG TABLET PO SCH (18:13)
[2023-07-20] MEDS ORDERED: ACETAMINOPHEN 325 MG TABLET PO PRN (19:15)
[2023-07-20] MEDS ORDERED: ZOLPIDEM TARTRATE 5 MG TABLET PO PRN (19:15)
[2023-07-20] MEDS ORDERED: IPRATROPIUM BROMIDE 0.5 MG/2.5 ML NEB SOLUTION NEB PRN (19:15)
[2023-07-20] MEDS ORDERED: BISACODYL 10 MG RECTAL RECTAL SUPPOSITORY PR PRN (19:15)
[2023-07-20] MEDS ORDERED: HydrALAZINE HCL 20 MG/ML VIAL IVP PRN (19:15)
[2023-07-20] MEDS ORDERED: HYDROCODONE/ACETAMINOPHEN 5-325 MG TABLET PO PRN (19:15)
[2023-07-20] MEDS ORDERED: ONDANSETRON HCL 4 MG/2 ML VIAL IVP PRN (19:15)
[2023-07-20] MEDS ORDERED: ALBUTEROL SULFATE 2.5 MG/0.5 ML NEB SOLUTION NEB PRN (19:15)
[2023-07-20] MEDS ORDERED: MORPHINE SULFATE 2 MG/ML SYRINGE IVP PRN (19:15)
[2023-07-20] MEDS ORDERED: MAGNESIUM HYDROXIDE SUSPENSION 30 ML UDCUP PO PRN (19:15)
[2023-07-20] MEDS: DOCUSATE SODIUM 100 MG CAPSULE PO SCH (20:05)
[2023-07-20] MEDS: LABETALOL HCL 100 MG TABLET PO SCH (20:06)
[2023-07-20] MEDS: HydrALAZINE HCL 50 MG TABLET PO SCH (20:06)
[2023-07-20] MEDS: LOSARTAN POTASSIUM 25 MG TABLET PO SCH (20:06)
[2023-07-21] VITALS (13 sets, daily range): BP systolic 104–148; BP diastolic 60–80; PULSE 67–85; RESP 14–18; TEMP 97.2–99
[2023-07-21] MEDS: HEPARIN SODIUM,PORCINE 5,000 UNITS/ML VIAL SQ SCH ×3 (00:23→16:09)
[2023-07-21 05:39] LABS: BASOPHILS % (AUTO) 0.8 % (0.0-2.0); EOSINOPHILS % (AUTO) 1.2 % (1.0-6.0); HEMATOCRIT 35.6 % (36-46); HEMOGLOBIN 11.3 g/dL (12.0-16.0); LYMPHOCYTES # (AUTO) 1.3 K/uL (1.0-4.8); LYMPHOCYTES % (AUTO) 22.6 % (22.0-44.0); MEAN CORPUSCULAR HEMOGLOBIN 24.3 pg (26.0-34.0); MEAN CORPUSCULAR HGB CONC 31.7 G/dL (31.0-37.0); MEAN CORPUSCULAR VOLUME 77 fL (80-100); MONOCYTES # (AUTO) 0.6 K/uL (0.1-1.0); MONOCYTES % (AUTO) 10.1 % (2.0-9.0); NEUTROPHILS # (AUTO) 3.9 K/uL (1.8-7.7); NEUTROPHILS % (AUTO) 65.3 % (40.0-70.0); PLATELET COUNT (AUTO) 194 K/uL (150-450); RED BLOOD CELL COUNT(AUTO) 4.63 MIL/uL (4.00-5.20); WHITE BLOOD COUNT (AUTO) 5.9 K/uL (4.5-11.0)
[2023-07-21 05:57] LABS: ALBUMIN 3.2 g/dL (3.4-5.0); BILIRUBIN,TOTAL 0.7 mg/dL (0.1-1.0); CALCIUM, TOTAL 8.7 mg/dL (8.8-10.5); CREATININE 5.17 mg/dL (0.60-1.30); POTASSIUM 3.9 mmol/L (3.5-5.1); TOTAL PROTEIN, SERUM 6.5 g/dL (6.4-8.2)
[2023-07-21] MEDS: LABETALOL HCL 100 MG TABLET PO SCH ×2 (07:47→16:09)
[2023-07-21] MEDS: HydrALAZINE HCL 50 MG TABLET PO SCH ×2 (07:47→16:09)
[2023-07-21] MEDS: DOCUSATE SODIUM 100 MG CAPSULE PO SCH ×2 (07:47→08:30)
[2023-07-21] MEDS: LOSARTAN POTASSIUM 25 MG TABLET PO SCH (07:48)
[2023-07-21] MEDS: SEVELAMER CARBONATE 800 MG TABLET PO SCH ×3 (07:48→17:02)
[2023-07-21] MEDS: AmLODIPine BESYLATE 10 MG TABLET PO SCH (07:48)
[2023-07-21] MEDS ORDERED: SODIUM CHLORIDE 0.9% 2,000 ML ONE (08:08)
[2023-07-21] MEDS ORDERED: PANTOPRAZOLE SODIUM 40 MG/VIAL IVP SCH (09:00)
[2023-07-21] MEDS ORDERED: LOSA-417 PO (16:36)
[2023-07-21] MEDS ORDERED: AMLO-258 PO (16:36)
== END 2023-07-21 19:00 | disposition home or self-care (01) | DRG 133 ==
LOC: EMS 07:59 → ICU 12:33
PROVIDERS: ADMIT Internal Medicine; ATTEND Internal Medicine
PROC: 5A1D70Z Performance of Urinary Filtration, Intermittent, Less than 6 Hours Per Day (ICD-10-PCS; principal; 2023-07-20)
PROC: 5A09357 Assistance with Respiratory Ventilation, Less than 24 Consecutive Hours, Continuous Positive Airway Pressure (ICD-10-PCS; 2023-07-20)
PROC: 5A1D70Z Performance of Urinary Filtration, Intermittent, Less than 6 Hours Per Day (ICD-10-PCS; 2023-07-21)
DX: J96.00 Acute respiratory failure, unspecified whether with hypoxia or hypercapnia (principal); I13.2 Hypertensive heart and chronic kidney disease with heart failure and with stage 5 chronic kidney disease, or end stage renal disease; N18.6 End stage renal disease; D63.1 Anemia in chronic kidney disease; E83.39 Other disorders of phosphorus metabolism; E11.22 Type 2 diabetes mellitus with diabetic chronic kidney disease; I16.0 Hypertensive urgency; Z20.822 Contact with and (suspected) exposure to COVID-19; I50.9 Heart failure, unspecified; F15.10 Other stimulant abuse, uncomplicated; F17.210 Nicotine dependence, cigarettes, uncomplicated; Z86.74 Personal history of sudden cardiac arrest; Z91.148 Patient's other noncompliance with medication regimen for other reason; Z99.2 Dependence on renal dialysis; Z91.158 Patient's noncompliance with renal dialysis for other reason
CPT/HCPCS: 71045; 80053; 80307; 81001; 81002; 83605; 83690; 83880; 84484; 85025; 87081; 87086; 87186; 87340; 90935; 93005; 94660; 99291; C9113; G0378; G0480; J0360; J1644; J1940; J2060; J3490; J7030; 36415-L1; 36415-TC

== ENCOUNTER 2023-07-30 20:27 | Emergency (ER) | payer MEDICAID ==
[~2023-07-30] VITALS: Ht 152.4 cm; Wt 44.8 kg
[~2023-07-30 20:27] MED LIST changes: +AMLO-258 PO; -FURO-151 PO; +LOSA-417 PO; -NIFE-141 PO
[2023-07-30 21:12] VITALS: TEMP 98.4
[2023-07-30] MEDS ORDERED: ACETAMINOPHEN/CODEINE 300-30 MG TABLET PO ONE (21:15)
[2023-07-30] MEDS ORDERED: ONDANSETRON HCL 4 MG TABLET PO ONE (21:15)
[2023-07-30 21:26] LABS: BASOPHILS % (AUTO) 0.9 % (0.0-2.0); EOSINOPHILS % (AUTO) 2.1 % (1.0-6.0); HEMOGLOBIN 9.6 g/dL (12.0-16.0); LYMPHOCYTES # (AUTO) 1.4 K/uL (1.0-4.8); LYMPHOCYTES % (AUTO) 28.1 % (22.0-44.0); MEAN CORPUSCULAR HEMOGLOBIN 24.1 pg (26.0-34.0); MEAN CORPUSCULAR VOLUME 75 fL (80-100); MONOCYTES # (AUTO) 0.6 K/uL (0.1-1.0); MONOCYTES % (AUTO) 12.2 % (2.0-9.0); NEUTROPHILS # (AUTO) 2.8 K/uL (1.8-7.7); NEUTROPHILS % (AUTO) 56.7 % (40.0-70.0); PLATELET COUNT (AUTO) 171 K/uL (150-450); RED BLOOD CELL COUNT(AUTO) 3.98 MIL/uL (4.00-5.20); RED CELL DISTRIBUTION WIDTH 17.6 % (11.5-14.5); WHITE BLOOD COUNT (AUTO) 4.9 K/uL (4.5-11.0)
[2023-07-30 21:31] VITALS: BP 170/96; PULSE 74; RESP 18
[2023-07-30 21:37] LABS: CALCIUM, TOTAL 9.1 mg/dL (8.8-10.5); CREATININE 4.06 mg/dL (0.60-1.30)
[2023-07-30 21:43] LABS: ALBUMIN 3.3 g/dL (3.4-5.0); BILIRUBIN,TOTAL 0.5 mg/dL (0.1-1.0); TOTAL PROTEIN, SERUM 6.6 g/dL (6.4-8.2)
[2023-07-30 21:45] LABS: TROPONIN I-HIGH SENSITIVITY 18 ng/L (<51)
== END 2023-07-30 23:39 | disposition home or self-care (01) ==
LOC: EMS 20:28
DX: I12.0 Hypertensive chronic kidney disease with stage 5 chronic kidney disease or end stage renal disease (principal); N18.6 End stage renal disease; R51.9 Headache, unspecified; R53.1 Weakness; F17.210 Nicotine dependence, cigarettes, uncomplicated; F15.90 Other stimulant use, unspecified, uncomplicated; Z98.890 Other specified postprocedural states; Z99.2 Dependence on renal dialysis
CPT/HCPCS: 99284; 70450; 80053; 84484; 85025; 36415; 93005; Q0162

== ENCOUNTER 2023-10-06 10:55 | Emergency (ER) | payer MEDICAID ==
[~2023-10-06] VITALS: Ht 152.4 cm; Wt 46.9 kg
[~2023-10-06 10:55] MED LIST changes: +CALC0.2521 PO; +FOLI0.8T2 PO; +LOSA-382 PO; -LOSA-417 PO; -SEVE800T17 PO; +SEVE800T38 PO
[2023-10-06] MEDS ORDERED: HydrALAZINE HCL 20 MG/ML VIAL IVP ONE (11:00)
[2023-10-06 11:03] VITALS: TEMP 97.7
[2023-10-06 11:23] LABS: BASOPHILS % (AUTO) 0.8 % (0.0-2.0); EOSINOPHILS % (AUTO) 1.7 % (1.0-6.0); HEMATOCRIT 26.9 % (36-46); HEMOGLOBIN 8.5 g/dL (12.0-16.0); LYMPHOCYTES # (AUTO) 1.5 K/uL (1.0-4.8); LYMPHOCYTES % (AUTO) 16.3 % (22.0-44.0); MEAN CORPUSCULAR HEMOGLOBIN 23.4 pg (26.0-34.0); MEAN CORPUSCULAR HGB CONC 31.7 G/dL (31.0-37.0); MEAN CORPUSCULAR VOLUME 74 fL (80-100); MONOCYTES # (AUTO) 0.7 K/uL (0.1-1.0); MONOCYTES % (AUTO) 7.3 % (2.0-9.0); NEUTROPHILS # (AUTO) 6.8 K/uL (1.8-7.7); NEUTROPHILS % (AUTO) 73.9 % (40.0-70.0); PLATELET COUNT (AUTO) 211 K/uL (150-450); RED BLOOD CELL COUNT(AUTO) 3.63 MIL/uL (4.00-5.20); RED CELL DISTRIBUTION WIDTH 16.7 % (11.5-14.5); WHITE BLOOD COUNT (AUTO) 9.2 K/uL (4.5-11.0)
[2023-10-06 11:26] LABS: RBC MORPHOLOGY COMMENT ABNORMAL RBC MORPH
[2023-10-06 11:33] LABS: CALCIUM, TOTAL 9.2 mg/dL (8.8-10.5); CREATININE 7.87 mg/dL (0.60-1.30); POTASSIUM 4.1 mmol/L (3.5-5.1)
[2023-10-06 11:41] LABS: TROPONIN I-HIGH SENSITIVITY 24 ng/L (<51)
[2023-10-06 13:34] VITALS: BP 207/96; PULSE 99; RESP 20
== END 2023-10-06 13:36 | disposition home or self-care (01) ==
LOC: EMS 10:57
DX: I12.0 Hypertensive chronic kidney disease with stage 5 chronic kidney disease or end stage renal disease (principal); N18.6 End stage renal disease; R06.02 Shortness of breath; D64.9 Anemia, unspecified; F17.210 Nicotine dependence, cigarettes, uncomplicated; F15.90 Other stimulant use, unspecified, uncomplicated; Z98.890 Other specified postprocedural states; Z99.2 Dependence on renal dialysis
CPT/HCPCS: 99285; 96374; 71045; 80048; 84484; 85025; 36415; 93005; J0360

== ENCOUNTER 2023-10-22 08:33 | Inpatient (IN) | payer MEDICAID ==
[2023-10-22] VITALS (10 sets, daily range): BP systolic 145–196; BP diastolic 64–125; PULSE 80–96; RESP 18; TEMP 97.2–98.8; O2SAT 93
[~2023-10-22] VITALS: Ht 154.9 cm; Wt 44.0 kg
[2023-10-22 08:57] LABS: BASOPHILS % (AUTO) 0.9 % (0.0-2.0); EOSINOPHILS % (AUTO) 1.6 % (1.0-6.0); HEMATOCRIT 24.5 % (36-46); HEMOGLOBIN 7.9 g/dL (12.0-16.0); LYMPHOCYTES # (AUTO) 1.1 K/uL (1.0-4.8); LYMPHOCYTES % (AUTO) 17.8 % (22.0-44.0); MEAN CORPUSCULAR HGB CONC 32.3 G/dL (31.0-37.0); MEAN CORPUSCULAR VOLUME 74 fL (80-100); MONOCYTES # (AUTO) 0.4 K/uL (0.1-1.0); NEUTROPHILS # (AUTO) 4.6 K/uL (1.8-7.7); NEUTROPHILS % (AUTO) 73.7 % (40.0-70.0); PLATELET COUNT (AUTO) 263 K/uL (150-450); RED BLOOD CELL COUNT(AUTO) 3.29 MIL/uL (4.00-5.20); RED CELL DISTRIBUTION WIDTH 17.7 % (11.5-14.5); WHITE BLOOD COUNT (AUTO) 6.3 K/uL (4.5-11.0)
[2023-10-22 09:19] LABS: CALCIUM, TOTAL 9.6 mg/dL (8.8-10.5); CREATININE 9.33 mg/dL (0.60-1.30); POTASSIUM 4.9 mmol/L (3.5-5.1)
[2023-10-22 09:25] LABS: ALBUMIN 3.5 g/dL (3.4-5.0); BILIRUBIN,TOTAL 0.4 mg/dL (0.1-1.0); TOTAL PROTEIN, SERUM 6.3 g/dL (6.4-8.2)
[2023-10-22 09:26] LABS: TROPONIN I-HIGH SENSITIVITY 26 ng/L (<51)
[2023-10-22 09:48] LABS: COVID AG,FIA SOURCE NASAL SWAB
[2023-10-22] MEDS ORDERED: ACETAMINOPHEN 325 MG TABLET PO PRN ×2 (10:00→11:45)
[2023-10-22] MEDS ORDERED: ONDANSETRON HCL 4 MG/2 ML VIAL IVP PRN ×2 (10:00→11:45)
[2023-10-22] MEDS ORDERED: 0.9% SODIUM CHLORIDE 10 ML SYRINGE IVP PRN (10:00)
[2023-10-22 10:16] LABS: SARS-COV2 (COVID) ANTIGEN,FIA Negative (Negative)
[2023-10-22] MEDS ORDERED: MORPHINE SULFATE 2 MG/ML SYRINGE IVP PRN (11:45)
[2023-10-22] MEDS ORDERED: MAGNESIUM HYDROXIDE SUSPENSION 30 ML UDCUP PO PRN (11:45)
[2023-10-22] MEDS ORDERED: BISACODYL 10 MG RECTAL RECTAL SUPPOSITORY PR PRN (11:45)
[2023-10-22] MEDS ORDERED: HYDROCODONE/ACETAMINOPHEN 5-325 MG TABLET PO PRN (11:45)
[2023-10-22] MEDS ORDERED: ZOLPIDEM TARTRATE 5 MG TABLET PO PRN (11:45)
[2023-10-22] MEDS ORDERED: AmLODIPine BESYLATE 10 MG TABLET PO ONE (12:00)
[2023-10-22] MEDS ORDERED: LOSARTAN POTASSIUM 50 MG TABLET PO ONE (12:00)
[2023-10-22] MEDS: SEVELAMER CARBONATE 800 MG TABLET PO SCH ×2 (12:09→18:15)
[2023-10-22] MEDS: HEPARIN SODIUM,PORCINE 5,000 UNITS/ML VIAL SQ SCH (16:00)
[2023-10-22] MEDS ORDERED: SODIUM CHLORIDE 0.9% 1,000 ML ONE (16:49)
[2023-10-22] MEDS: FOLIC ACID/VIT B COMPLEX AND C TABLET PO SCH (18:15)
[2023-10-22] MEDS: HydrALAZINE HCL 50 MG TABLET PO SCH ×2 (18:15→22:18)
[2023-10-22] MEDS: LABETALOL HCL 100 MG TABLET PO SCH (22:18)
[2023-10-22] MEDS: DOCUSATE SODIUM 100 MG CAPSULE PO SCH (22:18)
[2023-10-23 00:08] VITALS: BP 146/96; PULSE 77; RESP 16; TEMP 98.3
[2023-10-23 04:00] VITALS: BP 145/71; PULSE 68; RESP 16; TEMP 98.3
[2023-10-23 07:15] LABS: BASOPHILS % (AUTO) 0.9 % (0.0-2.0); EOSINOPHILS % (AUTO) 2.6 % (1.0-6.0); HEMATOCRIT 28.4 % (36-46); LYMPHOCYTES # (AUTO) 1.4 K/uL (1.0-4.8); LYMPHOCYTES % (AUTO) 20.8 % (22.0-44.0); MEAN CORPUSCULAR HEMOGLOBIN 23.6 pg (26.0-34.0); MEAN CORPUSCULAR HGB CONC 31.7 G/dL (31.0-37.0); MEAN CORPUSCULAR VOLUME 75 fL (80-100); MONOCYTES # (AUTO) 0.6 K/uL (0.1-1.0); MONOCYTES % (AUTO) 8.7 % (2.0-9.0); NEUTROPHILS # (AUTO) 4.5 K/uL (1.8-7.7); PLATELET COUNT (AUTO) 277 K/uL (150-450); RED BLOOD CELL COUNT(AUTO) 3.81 MIL/uL (4.00-5.20); RED CELL DISTRIBUTION WIDTH 17.7 % (11.5-14.5); WHITE BLOOD COUNT (AUTO) 6.7 K/uL (4.5-11.0)
[2023-10-23 08:00] VITALS: BP 140/74; PULSE 75; RESP 18; TEMP 98.2
[2023-10-23] MEDS: HEPARIN SODIUM,PORCINE 5,000 UNITS/ML VIAL SQ SCH ×2 (08:00)
[2023-10-23] MEDS: DOCUSATE SODIUM 100 MG CAPSULE PO SCH (08:11)
[2023-10-23] MEDS: LABETALOL HCL 100 MG TABLET PO SCH (08:12)
[2023-10-23] MEDS: HydrALAZINE HCL 50 MG TABLET PO SCH (08:12)
[2023-10-23] MEDS: FOLIC ACID/VIT B COMPLEX AND C TABLET PO SCH (08:12)
[2023-10-23] MEDS: SEVELAMER CARBONATE 800 MG TABLET PO SCH ×2 (08:13→12:34)
[2023-10-23 08:29] LABS: ALBUMIN 3.3 g/dL (3.4-5.0); BILIRUBIN,TOTAL 0.3 mg/dL (0.1-1.0); CALCIUM, TOTAL 8.9 mg/dL (8.8-10.5); CREATININE 6.1 mg/dL (0.60-1.30); POTASSIUM 4.7 mmol/L (3.5-5.1); TOTAL PROTEIN, SERUM 6.2 g/dL (6.4-8.2)
[2023-10-23 08:39] LABS: RBC MORPHOLOGY COMMENT ABNORMAL RBC MORPH
[2023-10-23] MEDS ORDERED: AmLODIPine BESYLATE 10 MG TABLET PO SCH (09:00)
[2023-10-23] MEDS ORDERED: EPOETIN ALFA 10,000 UNITS/ML VIAL SQ SCH ×2 (09:00)
[2023-10-23] MEDS ORDERED: PANTOPRAZOLE SODIUM 40 MG DR TABLET PO SCH (09:00)
[2023-10-23] MEDS ORDERED: LOSARTAN POTASSIUM 50 MG TABLET PO SCH (09:00)
[2023-10-23] MEDS ORDERED: FOLIC ACID/VIT B COMPLEX AND C TABLET PO SCH (09:00)
[2023-10-23 11:35] VITALS: BP 119/76; PULSE 73; RESP 19; TEMP 98.2
[2023-10-23 15:55] VITALS: BP 131/72; PULSE 78; RESP 18; TEMP 98
[2023-10-25] MEDS ORDERED: CALCITRIOL 0.25 MCG CAPSULE PO SCH (09:00)
== END 2023-10-23 15:50 | disposition home or self-care (01) | DRG 425 ==
LOC: EMS 08:44 → 5S 09:57
PROVIDERS: ADMIT Internal Medicine; ATTEND Internal Medicine
PROC: 5A1D70Z Performance of Urinary Filtration, Intermittent, Less than 6 Hours Per Day (ICD-10-PCS; principal; 2023-10-22)
DX: E87.70 Fluid overload, unspecified (principal); E43 Unspecified severe protein-calorie malnutrition; I12.0 Hypertensive chronic kidney disease with stage 5 chronic kidney disease or end stage renal disease; N18.6 End stage renal disease; D63.8 Anemia in other chronic diseases classified elsewhere; I16.0 Hypertensive urgency; Z20.822 Contact with and (suspected) exposure to COVID-19; F17.200 Nicotine dependence, unspecified, uncomplicated; F19.10 Other psychoactive substance abuse, uncomplicated; Z99.2 Dependence on renal dialysis; Z79.899 Other long term (current) drug therapy; Z98.891 History of uterine scar from previous surgery; Z91.158 Patient's noncompliance with renal dialysis for other reason; Z68.1 Body mass index [BMI] 19.9 or less, adult; Z91.199 Patient's noncompliance with other medical treatment and regimen due to unspecified reason
CPT/HCPCS: 71045; 80053; 82550; 83540; 83550; 83880; 84484; 85025; 87340; 90935; 93005; 99285; J0885; J1644; J2270; J7030; 36415-L1; 36415-TC

== ENCOUNTER 2023-11-06 13:04 | Inpatient (IN) | payer MEDICAID ==
[~2023-11-06] VITALS: Ht 154.9 cm; Wt 46.0 kg
[2023-11-06] VITALS (14 sets, daily range): BP systolic 98–175; BP diastolic 59–104; PULSE 44–110; RESP 15–27; TEMP 97.2–98; O2SAT 98–100
[2023-11-06 14:26] LABS: BASOPHILS % (AUTO) 0.8 % (0.0-2.0); EOSINOPHILS % (AUTO) 1.3 % (1.0-6.0); HEMATOCRIT 29.8 % (36-46); HEMOGLOBIN 9.1 g/dL (12.0-16.0); LYMPHOCYTES # (AUTO) 0.8 K/uL (1.0-4.8); LYMPHOCYTES % (AUTO) 11.8 % (22.0-44.0); MEAN CORPUSCULAR HEMOGLOBIN 23.5 pg (26.0-34.0); MEAN CORPUSCULAR HGB CONC 30.7 G/dL (31.0-37.0); MEAN CORPUSCULAR VOLUME 77 fL (80-100); MONOCYTES # (AUTO) 0.4 K/uL (0.1-1.0); NEUTROPHILS # (AUTO) 5.6 K/uL (1.8-7.7); NEUTROPHILS % (AUTO) 80.1 % (40.0-70.0); PLATELET COUNT (AUTO) 170 K/uL (150-450); RED BLOOD CELL COUNT(AUTO) 3.89 MIL/uL (4.00-5.20); RED CELL DISTRIBUTION WIDTH 18.9 % (11.5-14.5)
[2023-11-06 14:33] LABS: POTASSIUM 5.7 mmol/L (3.5-5.1)
[2023-11-06 14:34] LABS: CALCIUM, TOTAL 9.3 mg/dL (8.8-10.5); CREATININE 11.13 mg/dL (0.60-1.30)
[2023-11-06 14:36] LABS: INR 1.1 (0.9-1.1); PROTHROMBIN TIME 11.1 SEC (9.4-11.6)
[2023-11-06 14:41] LABS: TROPONIN I-HIGH SENSITIVITY 27 ng/L (<51)
[2023-11-06 14:58] LABS: ALBUMIN 3.8 g/dL (3.4-5.0); BILIRUBIN,TOTAL 0.3 mg/dL (0.1-1.0); TOTAL PROTEIN, SERUM 6.6 g/dL (6.4-8.2)
[2023-11-06] MEDS: CefTRIAXone 1 GM/DEXTROSE 50 ML IV ONE (15:16)
[2023-11-06] MEDS: AZITHROMYCIN 500 MG/NS 250 ML IV ONE (15:43)
[2023-11-06 16:06] LABS: INFLUENZA A-RTPCR,COMBO NEGATIVE (NEGATIVE); INFLUENZA B-RTPCR,COMBO NEGATIVE (NEGATIVE); RESPIRATORY SYNCYTIAL VRS-PCR NEGATIVE (NEGATIVE); SARS COVID19 RTPCR, COMBO NEGATIVE (NEGATIVE)
[2023-11-06] MEDS: SODIUM POLYSTYRENE SULFONATE 15 GM/60 ML SUSPENSION BOTTLE PO ONE (17:00)
[2023-11-06] MEDS ORDERED: MORPHINE SULFATE 2 MG/ML SYRINGE IVP PRN (17:00)
[2023-11-06] MEDS ORDERED: HYDROCODONE/ACETAMINOPHEN 5-325 MG TABLET PO PRN (17:00)
[2023-11-06] MEDS ORDERED: MAGNESIUM HYDROXIDE SUSPENSION 30 ML UDCUP PO PRN (17:00)
[2023-11-06] MEDS ORDERED: BISACODYL 10 MG RECTAL RECTAL SUPPOSITORY PR PRN (17:00)
[2023-11-06] MEDS ORDERED: ZOLPIDEM TARTRATE 5 MG TABLET PO PRN (17:00)
[2023-11-06] MEDS ORDERED: ONDANSETRON HCL 4 MG/2 ML VIAL IVP PRN (17:00)
[2023-11-06] MEDS: SEVELAMER CARBONATE 800 MG TABLET PO SCH (17:45)
[2023-11-06] MEDS: HydrALAZINE HCL 50 MG TABLET PO SCH (21:00)
[2023-11-06] MEDS: LABETALOL HCL 100 MG TABLET PO SCH (21:00)
[2023-11-06] MEDS: DOCUSATE SODIUM 100 MG CAPSULE PO SCH (21:00)
[2023-11-06 23:11] LABS: GLUCOMETER DEV NAME(LOC) 5S.2C; GLUCOSE,POINT OF CARE 118 MG/DL (70-110)
[2023-11-07] VITALS (22 sets, daily range): BP systolic 86–183; BP diastolic 42–95; PULSE 55–90; RESP 16–39; TEMP 91.4–99.3; O2SAT 99–100
[2023-11-07] MEDS: PROPOFOL 1000 MG/ISO-OSM 100 ML IV PRN ×2 (00:16→14:31)
[2023-11-07] MEDS: HEPARIN SODIUM,PORCINE 5,000 UNITS/ML VIAL SQ SCH (00:26)
[2023-11-07 00:41] LABS: ABG BASE EXCESS -13.1 mmol/L (-2.0-3.0); ABG CARBOXYHEMOGLOBIN 0.9 % (0.0-1.5); ABG HCO3 15.1 mmol/L (22.0-26.0); ABG METHEMOGLOBIN 0.9 % (0.0-1.5); ABG OXYGEN CONTENT 15.1 mL/dL (15.0-23.0); ABG OXYGEN SATURATION 96.7 % (95.0-98.0); ABG PCO2 31 mmHg (35-45); ABG PH 7.271 (7.35-7.450); ABG TOTAL HEMOGLOBIN 11.2 G/dL (12.0-18.0); PO2, ARTERIAL BG 97.5 mmHg (84.0-92.0); SOURCE, BLOOD GAS ARTERIAL; TEMPERATURE, FAHRENHEIT, BG 97.9 FAHREN (96.0-98.6)
[2023-11-07 01:00] LABS: ALLEN TEST, BLOOD GAS Positive; SITE, BLOOD GAS LFT RADIAL
[2023-11-07 01:01] LABS: ABG A-A DIFF O2 585.6 mmHg (10-20.0); O2 DEVICE,BLOOD GAS VENTILATOR (ROOM AIR); PEEP,BG 5 cm H2O; SPONTANEOUS VT, BG 395 ml; VT, ABG 350 ml
[2023-11-07 01:06] LABS: BASOPHILS % (AUTO) 0.5 % (0.0-2.0); EOSINOPHILS % (AUTO) 0.3 % (1.0-6.0); HEMOGLOBIN 9.8 g/dL (12.0-16.0); LYMPHOCYTES # (AUTO) 1.6 K/uL (1.0-4.8); LYMPHOCYTES % (AUTO) 14.2 % (22.0-44.0); MEAN CORPUSCULAR HEMOGLOBIN 23.7 pg (26.0-34.0); MEAN CORPUSCULAR HGB CONC 30.7 G/dL (31.0-37.0); MEAN CORPUSCULAR VOLUME 77 fL (80-100); MONOCYTES # (AUTO) 0.6 K/uL (0.1-1.0); MONOCYTES % (AUTO) 5.2 % (2.0-9.0); NEUTROPHILS # (AUTO) 9.3 K/uL (1.8-7.7); NEUTROPHILS % (AUTO) 79.8 % (40.0-70.0); PLATELET COUNT (AUTO) 149 K/uL (150-450); RED BLOOD CELL COUNT(AUTO) 4.13 MIL/uL (4.00-5.20); RED CELL DISTRIBUTION WIDTH 19.1 % (11.5-14.5); WHITE BLOOD COUNT (AUTO) 11.6 K/uL (4.5-11.0)
[2023-11-07 01:29] LABS: TROPONIN I-HIGH SENSITIVITY 317 ng/L (<51)
[2023-11-07 01:55] LABS: ALBUMIN 3.3 g/dL (3.4-5.0); BILIRUBIN,TOTAL 1.2 mg/dL (0.1-1.0); CALCIUM, TOTAL 10.1 mg/dL (8.8-10.5); CREATININE 6.3 mg/dL (0.60-1.30); POTASSIUM 4.9 mmol/L (3.5-5.1); TOTAL PROTEIN, SERUM 6.6 g/dL (6.4-8.2)
[2023-11-07 02:08] LABS: RBC MORPHOLOGY COMMENT ABNORMAL RBC MORPH
[2023-11-07] MEDS: FentaNYL CIT 1000MCG/0.9% NACL 100 ML IV PRN (02:57)
[2023-11-07] MEDS: HydrALAZINE HCL 20 MG/ML VIAL IVP PRN (02:57)
[2023-11-07] MEDS: NOREPINEPHRINE 8 MG/0.9 % NACL 250 ML IV PRN ×2 (05:07→13:56)
[2023-11-07] MEDS: DOPamine 400MG/D5W[STANDARD] 250 ML IV PRN (05:09)
[2023-11-07] MEDS ORDERED: DEXTROSE 50%-WATER 25 GM/50 ML SYRINGE IVP ONE (05:14)
[2023-11-07 05:31] LABS: GLUCOMETER DEV NAME(LOC) ICUN.5; GLUCOSE,POINT OF CARE < 10 MG/DL (70-110)
[2023-11-07] MEDS: DEXTROSE 50%-WATER 25 GM/50 ML SYRINGE IVP PRN (05:42)
[2023-11-07 05:53] LABS: BASOPHILS % (AUTO) 0.4 % (0.0-2.0); EOSINOPHILS % (AUTO) 0.1 % (1.0-6.0); HEMATOCRIT 37.1 % (36-46); HEMOGLOBIN 10.6 g/dL (12.0-16.0); LYMPHOCYTES # (AUTO) 1.3 K/uL (1.0-4.8); LYMPHOCYTES % (AUTO) 9.2 % (22.0-44.0); MEAN CORPUSCULAR HEMOGLOBIN 23.3 pg (26.0-34.0); MEAN CORPUSCULAR HGB CONC 28.7 G/dL (31.0-37.0); MEAN CORPUSCULAR VOLUME 81 fL (80-100); NEUTROPHILS # (AUTO) 11.5 K/uL (1.8-7.7); NEUTROPHILS % (AUTO) 83.3 % (40.0-70.0); PLATELET COUNT (AUTO) 97 K/uL (150-450); RED BLOOD CELL COUNT(AUTO) 4.56 MIL/uL (4.00-5.20); RED CELL DISTRIBUTION WIDTH 19.7 % (11.5-14.5); WHITE BLOOD COUNT (AUTO) 13.8 K/uL (4.5-11.0)
[2023-11-07 06:04] LABS: CALCIUM, TOTAL 10.2 mg/dL (8.8-10.5); CREATININE 6.63 mg/dL (0.60-1.30)
[2023-11-07 06:18] LABS: POTASSIUM 6.7 mmol/L (3.5-5.1)
[2023-11-07] MEDS: INSULIN REGULAR, HUMAN 100 UNITS/ML IVP ONE (07:01)
[2023-11-07] MEDS: LOSARTAN POTASSIUM 50 MG TABLET PO SCH (09:00)
[2023-11-07] MEDS ORDERED: SODIUM ZIRCONIUM CYCLOSILICATE 5 GM POWDER PACKET PO SCH (09:00)
[2023-11-07] MEDS: AmLODIPine BESYLATE 10 MG TABLET PO SCH (09:00)
[2023-11-07] MEDS: FOLIC ACID/VIT B COMPLEX AND C TABLET PO SCH (09:25)
[2023-11-07] MEDS: PANTOPRAZOLE SODIUM 40 MG DR TABLET PO SCH (09:25)
[2023-11-07] MEDS: ACETAMINOPHEN 325 MG TABLET PO PRN (09:25)
[2023-11-07] MEDS ORDERED: LevETIRAcetam 500 MG in DEXTROSE 5%-WATER 100 ML IV SCH ×2 (10:00→17:15)
[2023-11-07] MEDS: ALBUMIN HUMAN 25%-25GM/100ML 100 ML IV ONE (11:13)
[2023-11-07 11:15] LABS: BASOPHILS % (AUTO) 0.2 % (0.0-2.0); EOSINOPHILS % (AUTO) 0.1 % (1.0-6.0); HEMATOCRIT 30.9 % (36-46); HEMOGLOBIN 9.6 g/dL (12.0-16.0); LYMPHOCYTES # (AUTO) 1.1 K/uL (1.0-4.8); LYMPHOCYTES % (AUTO) 6.8 % (22.0-44.0); MEAN CORPUSCULAR HEMOGLOBIN 23.8 pg (26.0-34.0); MEAN CORPUSCULAR HGB CONC 31.1 G/dL (31.0-37.0); MEAN CORPUSCULAR VOLUME 77 fL (80-100); MONOCYTES # (AUTO) 0.6 K/uL (0.1-1.0); PLATELET COUNT (AUTO) 71 K/uL (150-450); RED BLOOD CELL COUNT(AUTO) 4.03 MIL/uL (4.00-5.20); RED CELL DISTRIBUTION WIDTH 18.8 % (11.5-14.5); WHITE BLOOD COUNT (AUTO) 15.8 K/uL (4.5-11.0)
[2023-11-07 11:22] LABS: GLUCOMETER DEV NAME(LOC) ICUN.5; GLUCOSE,POINT OF CARE 181 MG/DL (70-110)
[2023-11-07 11:22] LABS: GLUCOMETER DEV NAME(LOC) ICUN.5; GLUCOSE,POINT OF CARE 150 MG/DL (70-110)
[2023-11-07 11:22] LABS: GLUCOMETER DEV NAME(LOC) ICUN.5; GLUCOSE,POINT OF CARE 242 MG/DL (70-110)
[2023-11-07 11:22] LABS: GLUCOMETER DEV NAME(LOC) ICUN.5; GLUCOSE,POINT OF CARE 140 MG/DL (70-110)
[2023-11-07 11:22] LABS: GLUCOMETER DEV NAME(LOC) ICUN.5; GLUCOSE,POINT OF CARE 114 MG/DL (70-110)
[2023-11-07 11:22] LABS: GLUCOMETER DEV NAME(LOC) ICUN.5; GLUCOSE,POINT OF CARE 120 MG/DL (70-110)
[2023-11-07 11:22] LABS: GLUCOMETER DEV NAME(LOC) ICUN.5; GLUCOSE,POINT OF CARE 209 MG/DL (70-110)
[2023-11-07 11:34] LABS: NEUTROPHILS % (AUTO) 88.9 % (40.0-70.0)
[2023-11-07 11:35] LABS: ABG BASE EXCESS -4.1 mmol/L (-2.0-3.0); ABG CARBOXYHEMOGLOBIN 0.7 % (0.0-1.5); ABG HCO3 21.9 mmol/L (22.0-26.0); ABG OXYGEN CONTENT 14.5 mL/dL (15.0-23.0); ABG OXYGEN SATURATION 96.2 % (95.0-98.0); ABG OXYHEMOGLOBIN 95.5 % (94.0-100.0); ABG PCO2 25 mmHg (35-45); ABG TOTAL HEMOGLOBIN 10.7 G/dL (12.0-18.0); ALLEN TEST, BLOOD GAS POS; O2 DEVICE,BLOOD GAS VENTILATOR (ROOM AIR); PO2, ARTERIAL BG 70.4 mmHg (84.0-92.0); SITE, BLOOD GAS RT BRACHIAL; SOURCE, BLOOD GAS ARTERIAL; TEMPERATURE, FAHRENHEIT, BG 93.6 FAHREN (96.0-98.6)
[2023-11-07 11:36] LABS: PEEP,BG 5 cm H2O; VT, ABG 350 ml
[2023-11-07 12:13] LABS: LACTIC ACID 10.1 mmol/L (0.4-2.0); TROPONIN I-HIGH SENSITIVITY 1070 ng/L (<51)
[2023-11-07 12:16] LABS: ALBUMIN 4.3 g/dL (3.4-5.0); BILIRUBIN,TOTAL 2.9 mg/dL (0.1-1.0); CALCIUM, TOTAL 8.5 mg/dL (8.8-10.5); CREATININE 4.68 mg/dL (0.60-1.30); MAGNESIUM 2.5 mg/dL (1.80-2.40); PHOSPHORUS 8.1 mg/dL (2.5-4.9); POTASSIUM 4.2 mmol/L (3.5-5.1); TOTAL PROTEIN, SERUM 7.4 g/dL (6.4-8.2)
[2023-11-07] MEDS ORDERED: 0.9% SODIUM CHLORIDE 10 ML SYRINGE IVP ONE (16:47)
[2023-11-07] MEDS ORDERED: CALCIUM CHLORIDE 100 MG/ML 10 ML VIAL ONE (16:47)
[2023-11-07] MEDS ORDERED: LIDOCAINE/PF 2% 5 ML SYRINGE IVP ONE (16:47)
[2023-11-07] MEDS ORDERED: EPINEPHrine 1:10,000 [1 MG/10 ML] SYRINGE ONE (16:47)
[2023-11-07 16:54] LABS: OCCULT BLOOD,GASTRIC FLUID POSITIVE (NEGATIVE); PH, GASTRIC OKAY
[2023-11-07 17:54] LABS: BILIRUBIN,TOTAL 3.6 mg/dL (0.1-1.0); CALCIUM, TOTAL 9.1 mg/dL (8.8-10.5); CREATININE 4.09 mg/dL (0.60-1.30); MAGNESIUM 2.7 mg/dL (1.80-2.40); PHOSPHORUS 8.4 mg/dL (2.5-4.9); POTASSIUM 5.4 mmol/L (3.5-5.1); TOTAL PROTEIN, SERUM 6.4 g/dL (6.4-8.2)
[2023-11-07 18:01] LABS: ABG BASE EXCESS -8.7 mmol/L (-2.0-3.0); ABG CARBOXYHEMOGLOBIN 0.6 % (0.0-1.5); ABG METHEMOGLOBIN 0.2 % (0.0-1.5); ABG OXYGEN CONTENT 14.9 mL/dL (15.0-23.0); ABG OXYGEN SATURATION 99.4 % (95.0-98.0); ABG OXYHEMOGLOBIN 98.6 % (94.0-100.0); ABG PCO2 30 mmHg (35-45); ABG PH 7.363 (7.35-7.450); ABG TOTAL HEMOGLOBIN 10.4 G/dL (12.0-18.0); PO2, ARTERIAL BG 196.6 mmHg (84.0-92.0); SOURCE, BLOOD GAS ARTERIAL; TEMPERATURE, FAHRENHEIT, BG 91.2 FAHREN (96.0-98.6)
[2023-11-07 18:03] LABS: ABG A-A DIFF O2 196.6 mmHg (10-20.0); ALLEN TEST, BLOOD GAS Positive; O2 DEVICE,BLOOD GAS VENTILATOR (ROOM AIR); PEEP,BG 5 cm H2O; SITE, BLOOD GAS RT BRACHIAL; VT, ABG 350 ml
[2023-11-07] MEDS: PIPERACILLIN SODIUM/TAZOBACTAM 2.25 GM in DEXTROSE 5%-WATER 50 ML IV SCH (18:19)
[2023-11-07] MEDS: LevETIRAcetam 500 MG in DEXTROSE 5%-WATER 100 ML IV SCH (18:19)
[2023-11-07] MEDS ORDERED: SODIUM CHLORIDE 0.9% 250 ML IV ONE (18:23)
[2023-11-07] MEDS ORDERED: LevETIRAcetam 250 MG in DEXTROSE 5%-WATER 100 ML IV PRN (19:15)
[2023-11-07 19:35] LABS: GLUCOMETER DEV NAME(LOC) ICUN.5; GLUCOSE,POINT OF CARE 123 MG/DL (70-110)
[2023-11-07 22:32] LABS: GLUCOMETER DEV NAME(LOC) ICUN.5; GLUCOSE,POINT OF CARE 90 MG/DL (70-110)
[2023-11-07 23:57] LABS: ALBUMIN 3.7 g/dL (3.4-5.0); BILIRUBIN,TOTAL 3.4 mg/dL (0.1-1.0); CALCIUM, TOTAL 8.3 mg/dL (8.8-10.5); CREATININE 4.89 mg/dL (0.60-1.30); MAGNESIUM 2.7 mg/dL (1.80-2.40)
[2023-11-08] VITALS (22 sets, daily range): BP systolic 87–119; BP diastolic 30–99; PULSE 55–85; RESP 14–25; TEMP 90.6–97.8; O2SAT 97–100
[2023-11-08 00:01] LABS: POTASSIUM 6.5 mmol/L (3.5-5.1)
[2023-11-08 00:08] LABS: PHOSPHORUS 12.1 mg/dL (2.5-4.9)
[2023-11-08 00:38] LABS: ABG BASE EXCESS -13.3 mmol/L (-2.0-3.0); ABG CARBOXYHEMOGLOBIN 0.7 % (0.0-1.5); ABG HCO3 14.7 mmol/L (22.0-26.0); ABG METHEMOGLOBIN 0.1 % (0.0-1.5); ABG OXYGEN CONTENT 13.8 mL/dL (15.0-23.0); ABG OXYGEN SATURATION 98.9 % (95.0-98.0); ABG OXYHEMOGLOBIN 98.1 % (94.0-100.0); ABG PCO2 30 mmHg (35-45); ABG PH 7.279 (7.35-7.450); ABG TOTAL HEMOGLOBIN 9.7 G/dL (12.0-18.0); PO2, ARTERIAL BG 154.7 mmHg (84.0-92.0); SITE, BLOOD GAS RT BRACHIAL; SOURCE, BLOOD GAS ARTERIAL; TEMPERATURE, FAHRENHEIT, BG 91.4 FAHREN (96.0-98.6)
[2023-11-08 00:39] LABS: O2 DEVICE,BLOOD GAS VENT (ROOM AIR); PEEP,BG 5 cm H2O; VT, ABG 350 ml
[2023-11-08] MEDS ORDERED: CALCIUM GLUCONATE 100 MG/ML 10 ML IVP ONE (00:44)
[2023-11-08] MEDS: INSULIN REGULAR, HUMAN 100 UNITS/ML IVP ONE (00:45)
[2023-11-08] MEDS: CALCIUM GLUCONATE 100 MG/ML 10 ML IVP ONE (00:45)
[2023-11-08 01:06] LABS: GLUCOMETER DEV NAME(LOC) ICUN.5; GLUCOSE,POINT OF CARE 52 MG/DL (70-110)
[2023-11-08 02:16] LABS: GLUCOMETER DEV NAME(LOC) ICUN.5; GLUCOSE,POINT OF CARE 156 MG/DL (70-110)
[2023-11-08] MEDS ORDERED: SODIUM CHLORIDE 0.9% 2,000 ML ONE (02:55)
[2023-11-08 06:39] LABS: HEMATOCRIT 29.4 % (36-46); HEMOGLOBIN 9.4 g/dL (12.0-16.0); MEAN CORPUSCULAR HEMOGLOBIN 24.4 pg (26.0-34.0); MEAN CORPUSCULAR VOLUME 76 fL (80-100); RED BLOOD CELL COUNT(AUTO) 3.87 MIL/uL (4.00-5.20); RED CELL DISTRIBUTION WIDTH 18.8 % (11.5-14.5); WHITE BLOOD COUNT (AUTO) 9.6 K/uL (4.5-11.0)
[2023-11-08 06:56] LABS: GLUCOMETER DEV NAME(LOC) ICUN.5; GLUCOSE,POINT OF CARE 72 MG/DL (70-110)
[2023-11-08 06:56] LABS: GLUCOMETER DEV NAME(LOC) ICUN.5; GLUCOSE,POINT OF CARE 78 MG/DL (70-110)
[2023-11-08 06:57] LABS: TROPONIN I-HIGH SENSITIVITY 1668 ng/L (<51)
[2023-11-08 07:44] LABS: PLATELET COUNT (AUTO) 49 K/uL (150-450)
[2023-11-08] MEDS ORDERED: SODIUM CHLORIDE 0.9% 1,000 ML ONE (07:45)
[2023-11-08 07:48] LABS: BAND NEUTROPHILS % (MANUAL) 12 % (0-5); LYMPHOCYTES % (MANUAL) 15 % (22-44); MONOCYTES % (MANUAL) 1 % (2-9); SEGMENTED NEUTROPHILS % 72 % (40-70); TOTAL CELLS COUNTED 100
[2023-11-08 07:49] LABS: RBC MORPHOLOGY COMMENT ABNORMAL R
[2023-11-08 07:58] LABS: ABG BASE EXCESS -4.1 mmol/L (-2.0-3.0); ABG CARBOXYHEMOGLOBIN 0.7 % (0.0-1.5); ABG HCO3 21.4 mmol/L (22.0-26.0); ABG METHEMOGLOBIN 0.1 % (0.0-1.5); ABG OXYGEN CONTENT 13.9 mL/dL (15.0-23.0); ABG OXYGEN SATURATION 98.2 % (95.0-98.0); ABG OXYHEMOGLOBIN 97.4 % (94.0-100.0); ABG PCO2 31 mmHg (35-45); ABG PH 7.431 (7.35-7.450); ALLEN TEST, BLOOD GAS Positive; O2 DEVICE,BLOOD GAS VENTILATOR (ROOM AIR); PEEP,BG 5 cm H2O; PO2, ARTERIAL BG 94.6 mmHg (84.0-92.0); SITE, BLOOD GAS RT RADIAL; SOURCE, BLOOD GAS ARTERIAL; VT, ABG 350 ml
[2023-11-08 08:36] LABS: GLUCOMETER DEV NAME(LOC) ICUN.5; GLUCOSE,POINT OF CARE 29 MG/DL (70-110)
[2023-11-08] MEDS: CALCITRIOL 0.25 MCG CAPSULE PO SCH (08:43)
[2023-11-08] MEDS: EPOETIN ALFA 10,000 UNITS/ML VIAL SQ SCH (08:43)
[2023-11-08] MEDS ORDERED: EPOETIN ALFA 10,000 UNITS/ML VIAL SQ SCH (09:00)
[2023-11-08 09:21] LABS: GLUCOMETER DEV NAME(LOC) ICUN.5; GLUCOSE,POINT OF CARE 145 MG/DL (70-110)
[2023-11-08] MEDS: [UNRECOGNIZED DRUG - REMARK] MISC SCH (09:48)
[2023-11-08] MEDS ORDERED: SODIUM CHLORIDE 0.9% 500 ML IV ONE (10:00)
[2023-11-08 10:27] LABS: CALCIUM, TOTAL 8.1 mg/dL (8.8-10.5); CREATININE 2.22 mg/dL (0.60-1.30); POTASSIUM 3.3 mmol/L (3.5-5.1)
[2023-11-08 10:38] LABS: ALBUMIN 3.2 g/dL (3.4-5.0); BILIRUBIN,TOTAL 2.9 mg/dL (0.1-1.0); MAGNESIUM 2.1 mg/dL (1.80-2.40); PHOSPHORUS 5.9 mg/dL (2.5-4.9); TOTAL PROTEIN, SERUM 5.4 g/dL (6.4-8.2)
[2023-11-08] MEDS: DEXTROSE 10%-WATER 250 ML IV SCH (11:21)
[2023-11-08] MEDS: LevETIRAcetam 500 MG in DEXTROSE 5%-WATER 100 ML IV SCH (11:21)
[2023-11-08] MEDS: PANTOPRAZOLE SODIUM 80 MG in SODIUM CHLORIDE 0.9% 100 ML IV SCH (14:30)
[2023-11-08] MEDS: DEXTROSE 10%-WATER 1,000 ML IV SCH (15:28)
[2023-11-08 15:41] LABS: ALBUMIN 2.9 g/dL (3.4-5.0); BILIRUBIN,TOTAL 2.5 mg/dL (0.1-1.0); CALCIUM, TOTAL 8.1 mg/dL (8.8-10.5); CREATININE 2.96 mg/dL (0.60-1.30); MAGNESIUM 2.2 mg/dL (1.80-2.40); TOTAL PROTEIN, SERUM 4.9 g/dL (6.4-8.2)
[2023-11-08 16:36] LABS: GLUCOMETER DEV NAME(LOC) ICUN.5; GLUCOSE,POINT OF CARE 66 MG/DL (70-110)
[2023-11-08 16:36] LABS: GLUCOMETER DEV NAME(LOC) ICUN.5; GLUCOSE,POINT OF CARE 83 MG/DL (70-110)
[2023-11-08] MEDS ORDERED: ALBUMIN HUMAN 25%-12.5GM/50ML IV BOTTLE IV ONE (16:49)
[2023-11-08] MEDS ORDERED: HEPARIN SODIUM,PORCINE 1,000 UNITS/ML VIAL IVP ONE (16:49)
[2023-11-08 17:02] LABS: PHOSPHORUS 9.3 mg/dL (2.5-4.9)
[2023-11-08 18:16] LABS: GLUCOMETER DEV NAME(LOC) ICUN.5; GLUCOSE,POINT OF CARE 130 MG/DL (70-110)
[2023-11-08] MEDS: PHENYLEPHRINE 200 MG/D5%-WATER 250 ML IV PRN (19:19)
[2023-11-08 20:34] LABS: CALCIUM, TOTAL 8.6 mg/dL (8.8-10.5); CREATININE 3.4 mg/dL (0.60-1.30); POTASSIUM 5.7 mmol/L (3.5-5.1)
[2023-11-08 21:06] LABS: GLUCOMETER DEV NAME(LOC) ICUN.5; GLUCOSE,POINT OF CARE 89 MG/DL (70-110)
[2023-11-08] MEDS: VASOPRESSIN 40 UNITS in DEXTROSE 5%-WATER 98 ML IV PRN (21:15)
[2023-11-08] MEDS ORDERED: SODIUM CHLORIDE 0.9% 250 ML IV ONE (22:32)
[2023-11-09] VITALS: BP 172/48; PULSE 85; RESP 14; TEMP 97.4
[2023-11-09 00:16] LABS: GLUCOMETER DEV NAME(LOC) ICUN.5; GLUCOSE,POINT OF CARE 33 MG/DL (70-110)
[2023-11-09] MEDS ORDERED: EPINEPHrine 5 MG in DEXTROSE 5%-WATER 245 ML IV PRN (00:30)
[2023-11-09] MEDS ORDERED: DEXTROSE 5% IV PRN (00:30)
[2023-11-09] MEDS ORDERED: WATER IV PRN (00:30)
[2023-11-09] MEDS ORDERED: EPINEPHRINE IV PRN (00:30)
[2023-11-09] MEDS: EPINEPHrine 10 MG in DEXTROSE 5%-WATER 240 ML IV PRN (00:42)
[2023-11-09 01:00] VITALS: PULSE 80; RESP 14; O2SAT 98
[2023-11-09 01:16] LABS: GLUCOMETER DEV NAME(LOC) ICUN.5; GLUCOSE,POINT OF CARE 213 MG/DL (70-110)
[2023-11-09 02:26] LABS: GLUCOMETER DEV NAME(LOC) ICUN.5; GLUCOSE,POINT OF CARE 134 MG/DL (70-110)
[2023-11-09] MEDS ORDERED: CALCIUM CHLORIDE 100 MG/ML 10 ML SYRINGE IVP ONE ×3 (02:35→04:32)
[2023-11-09] MEDS ORDERED: POTASSIUM CHLORIDE 10 MEQ in NXSTAGE RFP-402 K0/CA3 5,000 ML IRRIG PRN (02:45)
[2023-11-09] MEDS ORDERED: HEPARIN SODIUM,PORCINE 1,000 UNITS/ML VIAL IVCATH PRN ×2 (03:00)
[2023-11-09 04:00] VITALS: BP 99/24; PULSE 90; RESP 14; TEMP 96.3
[2023-11-09 04:11] VITALS: BP 106/34; PULSE 80
[2023-11-09] MEDS ORDERED: EPINEPHrine 1:10,000 [1 MG/10 ML] SYRINGE IVP ONE ×2 (04:32)
[2023-11-09] MEDS ORDERED: SODIUM BICARBONATE [ADULT] 8.4% 50 MEQ/50 ML SYRINGE IVP ONE ×2 (04:32)
[2023-11-09] MEDS ORDERED: ATROPINE SULFATE 0.1 MG/ML 10 ML SYRINGE IVP ONE (04:32)
[2023-11-09] MEDS ORDERED: EPINEPHrine 1:10,000 [1 MG/10 ML] SYRINGE ONE (04:42)
== END 2023-11-09 04:33 | DRG 133 ==
LOC: EMS 13:05 → 5S 15:16 → ICU 23:35
PROVIDERS: ADMIT Internal Medicine; ATTEND Internal Medicine
PROC: 5A1D70Z Performance of Urinary Filtration, Intermittent, Less than 6 Hours Per Day (ICD-10-PCS; 2023-11-06)
PROC: 5A1945Z Respiratory Ventilation, 24-96 Consecutive Hours (ICD-10-PCS; principal; 2023-11-07)
PROC: 0BH17EZ Insertion of Endotracheal Airway into Trachea, Via Natural or Artificial Opening (ICD-10-PCS; 2023-11-07)
PROC: 06HM33Z Insertion of Infusion Device into Right Femoral Vein, Percutaneous Approach (ICD-10-PCS; 2023-11-07)
PROC: 5A1D70Z Performance of Urinary Filtration, Intermittent, Less than 6 Hours Per Day (ICD-10-PCS; 2023-11-07)
PROC: 5A12012 Performance of Cardiac Output, Single, Manual (ICD-10-PCS; 2023-11-08)
PROC: 04HY32Z Insertion of Monitoring Device into Lower Artery, Percutaneous Approach (ICD-10-PCS; 2023-11-08)
PROC: 06HN33Z Insertion of Infusion Device into Left Femoral Vein, Percutaneous Approach (ICD-10-PCS; 2023-11-08)
DX: J96.01 Acute respiratory failure with hypoxia (principal); I46.9 Cardiac arrest, cause unspecified; K72.00 Acute and subacute hepatic failure without coma; J69.0 Pneumonitis due to inhalation of food and vomit; I50.31 Acute diastolic (congestive) heart failure; D63.1 Anemia in chronic kidney disease; E87.20 Acidosis, unspecified; I13.2 Hypertensive heart and chronic kidney disease with heart failure and with stage 5 chronic kidney disease, or end stage renal disease; K92.2 Gastrointestinal hemorrhage, unspecified; N18.6 End stage renal disease; E87.5 Hyperkalemia; F15.10 Other stimulant abuse, uncomplicated; Z99.2 Dependence on renal dialysis; Z91.199 Patient's noncompliance with other medical treatment and regimen due to unspecified reason; E87.6 Hypokalemia; G25.3 Myoclonus; E16.2 Hypoglycemia, unspecified
CPT/HCPCS: 0241U; 36600; 71045; 76700; 80048; 80053; 82271; 82550; 82805; 82962; 83605; 83735; 83880; 84100; 84484; 85025; 85610; 85730; 87040; 87081; 87340; 90935; 92950; 93005; 93306; 94003; 99291; C9113; G0378; J0171; J0360; J0456; J0461; J0610; J0696; J0712; J0885; J1265; J1644; J1815; J2370; J2543; J2704; J3480; J3490; J7030; J7040; J7050; J7060; P9046; P9047; Q9967; 36415-L1; 36415-TC; 82803-TC